=== PATIENT | female | born 1985 | race Caucasian/White ===

== ENCOUNTER → 2017-10-24 15:22 | Outpatient (CLI) | payer OTHER, SELFPAY | PROVIDERS: Visit Provider Otolaryngology | DX: J02.9 Acute pharyngitis, unspecified (principal) | CPT/HCPCS: 87070; 87077 ==

== ENCOUNTER → 2018-05-15 17:46 | Outpatient (CLI) | payer OTHER, SELFPAY ==
--- NOTE | 2018-05-15 17:50 | CT_ITS ---
STUDY: CT BRAIN WITHOUT CONTRAST REASON FOR EXAM: Female, 32 years old. Migraines. RADIATION DOSAGE (If Supplied By Facility): CTDIvol = ( 44.99 ) mGy, DLP = ( 779.24 ) mGycm TECHNIQUE: Transaxial CT imaging of the brain was performed without administration of intravenous contrast material. Individualized dose optimization techniques were used for this CT. COMPARISON: None. FINDINGS: Normal soft tissue structures. Normal calvarium. Normal size ventricles and extra-axial spaces for the patient's age. Normal white matter tracts of the cerebral hemispheres. Normal basal ganglia and thalami. Normal brainstem. Normal cerebellum. There is no intracranial hemorrhage. There are no findings of an acute ischemic infarction. Mucous inclusion cyst seen in the posterior left sphenoid sinus. Mild mucoperiosteal thickening in the mid to posterior left ethmoid sinus. CT/Brain/Head without Contrast IMPRESSION: 1. Normal unenhanced CT scan of the brain. 2. Mild chronic paranasal sinusitis, including mucous inclusion cyst in the posterior left sphenoid sinus. Electronically Signed: Thor Ford MD at 19:02 EST , Service support ,
== END ==
PROVIDERS: Family Provider Family Medicine; PCP Family Medicine; Referring Provider Nurse Practitioner Acute Care; Visit Provider Nurse Practitioner Acute Care
DX: R51 Headache (principal)
CPT/HCPCS: 70450

== ENCOUNTER → 2018-06-15 20:00 | Outpatient (CLI) | payer OTHER, SELFPAY | PROVIDERS: Family Provider Family Medicine; PCP Family Medicine; Visit Provider Nurse Practitioner Acute Care | DX: R06.83 Snoring (principal); R09.89 Other specified symptoms and signs involving the circulatory and respiratory systems | CPT/HCPCS: 95810 ==

== ENCOUNTER → 2018-07-03 15:59 | Outpatient (CLI) | payer OTHER, SELFPAY ==
[2018-07-03 18:12] LABS: Progesterone Level 0.57 ng/mL (See Comment)
== END ==
PROVIDERS: Visit Provider Obstetrics & Gynecology
DX: E28.8 Other ovarian dysfunction (principal)
CPT/HCPCS: 36415; 84144

== ENCOUNTER → 2018-07-26 10:06 | Outpatient (CLI) | payer OTHER, SELFPAY ==
[2018-07-26 12:45] LABS: Hematocrit 49.4 % (37-47); Hemoglobin 15.9 g/dl (12.0-15.0); Mean Corp Hgb Conc 32.2 g/gl (32-36); Mean Corpuscular Hgb 30.7 pg (27.0-32.0); Mean Corpuscular Volume 95.4 fL (81-99); Mean Platelet Vol. 11.5 fl (6.2-12.0); Platelet Count 263 K/mm3 (150-450); RBC Distribution Width SD 45.2 fl (35.1-43.9); Red Blood Count 5.18 M/mm3 (4.2-5.4); White Blood Count 13.7 K/mm3 (4.4-11.0)
[2018-07-26 12:46] LABS: Scan Indicated on CBC? Y/N NO
[2018-07-26 13:11] LABS: ALB/GLOB Ratio 0.9 RATIO (0.9-2.4); AST(SGOT) 14 U/L (15-37); Alanine Aminotransfer ALT/SGPT 33 U/L (13-56); Albumin, Serum 3.5 g/dL (3.2-5.0); Alkaline Phosphatase 84 U/L (45-117); Anion Gap 9 (5-15); BUN 15 mg/dL (7-18); BUN/Creat Ratio 26.2 RATIO (10-20); Calcium,Total 8.5 mg/dL (8.5-10.1); Chloride 107 mmol/L (98-107); Creatinine, Serum 0.57 mg/dL (0.55-1.02); EST Glomerular Filtration Rate 131 mL/min (>60); Est Glom Filt Rate - Afr Amer 158 mL/min (>60); Estradiol 31.8 pg/mL; Follicle Stimulating Hormone 5.6 mIU/mL; Globulin 3.7 g/dL (2.2-4.2); Glucose 95 mg/dL (74-106); Luteinizing Hormone 3.3 mIU/mL; Potassium 4.4 mmol/L (3.5-5.1); Prolactin 8.7 ng/mL; Protein, Total 7.2 g/dL (6.4-8.2); Sodium Level 141 mmol/L (136-145); T3 Total - Triiodothyronine 1.34 ng/mL (0.6-1.81); T4 Free Direct 0.91 ng/dL (0.76-1.46); Thyroid Stim Hormone (TSH) 1.17 uIU/mL (0.358-3.74); Vitamin D,25 Hydroxy 19.3 ng/mL (29.95-100.01)
[2018-07-27 04:08] LABS: DHEA Sulfate 259.9 ug/dL (84.8-378.0)
[2018-07-27 10:12] LABS: Sex Hormone-binding Globulin 38.2 nmol/L (24.6-122.0)
== END ==
PROVIDERS: Visit Provider Obstetrics & Gynecology
DX: N97.0 Female infertility associated with anovulation (principal); E28.8 Other ovarian dysfunction; N83.9 Noninflammatory disorder of ovary, fallopian tube and broad ligament, unspecified
CPT/HCPCS: 36415; 80053; 82306; 82627; 82670; 83001; 83002; 84146; 84270; 84403; 84439; 84443; 84480; 85027; 82626

== ENCOUNTER → 2018-08-14 08:04 | Outpatient (CLI) | payer OTHER, SELFPAY ==
[2018-08-14 08:55] LABS: Hematocrit 44.7 % (37-47); Hemoglobin 14.9 g/dl (12.0-15.0); Mean Corp Hgb Conc 33.3 g/gl (32-36); Mean Corpuscular Hgb 31.3 pg (27.0-32.0); Mean Corpuscular Volume 93.9 fL (81-99); Mean Platelet Vol. 11.5 fl (6.2-12.0); Platelet Count 208 K/mm3 (150-450); RBC Distribution Width CV 12.9 % (11.6-14.6); Red Blood Count 4.76 M/mm3 (4.2-5.4); White Blood Count 17.2 K/mm3 (4.4-11.0)
[2018-08-14 08:58] LABS: Glucose 75GTT - Fasting 103 mg/dL (70-99)
[2018-08-14 09:03] LABS: Scan Indicated on CBC? Y/N NO
[2018-08-14 09:12] LABS: Vitamin D,25 Hydroxy 17.5 ng/mL (29.95-100.01)
[2018-08-14 09:12] LABS: Insulin 75GTT - Fasting 30.1 mU/L (2.6-37.6)
[2018-08-14 09:14] LABS: ALB/GLOB Ratio 0.8 RATIO (0.9-2.4); AST(SGOT) 18 U/L (15-37); Alanine Aminotransfer ALT/SGPT 32 U/L (13-56); Albumin, Serum 3.1 g/dL (3.2-5.0); Alkaline Phosphatase 69 U/L (45-117); Anion Gap 8 (5-15); BUN 12 mg/dL (7-18); BUN/Creat Ratio 22.3 RATIO (10-20); Calcium,Total 8.4 mg/dL (8.5-10.1); Chloride 108 mmol/L (98-107); Creatinine, Serum 0.54 mg/dL (0.55-1.02); EST Glomerular Filtration Rate 141 mL/min (>60); Est Glom Filt Rate - Afr Amer 170 mL/min (>60); Estradiol 78.9 pg/mL; Follicle Stimulating Hormone 2.8 mIU/mL; Free T3 3.4 pg/mL (2.18-3.98); Globulin 3.9 g/dL (2.2-4.2); Glucose 94 mg/dL (74-106); Luteinizing Hormone 6.3 mIU/mL; Potassium 3.9 mmol/L (3.5-5.1); Prolactin 15.9 ng/mL; Sodium Level 140 mmol/L (136-145); T4 Free Direct 0.92 ng/dL (0.76-1.46); Thyroid Stim Hormone (TSH) 2.75 uIU/mL (0.358-3.74)
[2018-08-14 10:08] LABS: Glucose 75GTT - 30 minutes 135 mg/dL (100-160)
[2018-08-14 10:09] LABS: Glucose 75GTT - 60 minutes 170 mg/dL (100-160)
[2018-08-14 10:20] LABS: Insulin 75GTT - 60 min 120.5 mU/L (Not Estab)
[2018-08-14 10:20] LABS: Insulin 75GTT - 30 MIN 71.2 mU/L (Not Estab.)
[2018-08-14 10:47] LABS: Glucose 75GTT - 120 minutes 140 mg/dL (70-140)
[2018-08-14 10:56] LABS: Insulin 75GTT - 120 min 187.4 mU/L (Not Estab.)
== END ==
PROVIDERS: Family Provider Family Medicine; PCP Family Medicine; Referring Provider Obstetrics & Gynecology; Visit Provider Obstetrics & Gynecology
DX: N97.0 Female infertility associated with anovulation (principal); E28.8 Other ovarian dysfunction; N83.9 Noninflammatory disorder of ovary, fallopian tube and broad ligament, unspecified
CPT/HCPCS: 36415; 80053; 82306; 82627; 82670; 82951; 82952; 83001; 83002; 83525; 84146; 84270; 84403; 84439; 84443; 84481; 85027; 82626

== ENCOUNTER → 2018-09-15 13:19 | Outpatient (CLI) | payer OTHER, SELFPAY ==
[2018-09-15 15:57] LABS: Progesterone Level 10.44 ng/mL (See Comment)
== END ==
PROVIDERS: Visit Provider Obstetrics & Gynecology
DX: N97.0 Female infertility associated with anovulation (principal)
CPT/HCPCS: 36415; 84144

== ENCOUNTER → 2018-10-16 09:16 | Outpatient (CLI) | payer OTHER, SELFPAY ==
[2018-10-16 11:11] LABS: Progesterone Level 8.06 ng/mL (See Comment)
== END ==
PROVIDERS: Visit Provider Obstetrics & Gynecology
DX: N97.0 Female infertility associated with anovulation (principal)
CPT/HCPCS: 36415; 84144

== ENCOUNTER → 2018-12-12 | Outpatient (CLI) | payer OTHER, SELFPAY ==
[2018-12-12 14:24] LABS: Progesterone Level 14.24 ng/mL (See Comment)
== END | disposition home or self-care (01) ==
PROVIDERS: Visit Provider Obstetrics & Gynecology
DX: N97.0 Female infertility associated with anovulation (principal)
CPT/HCPCS: 36415; 84144

== ENCOUNTER → 2019-02-13 | Outpatient (CLI) | payer OTHER, SELFPAY ==
[2019-02-13 19:22] LABS: Chlamydia Trachomatis by PCR Negative (Negative); Neisserai gonorrhoeae by PCR Negative (Negative); Probe Check PASS; Sample Adequacy Control PASS; Specimen Processing Control PASS
== END | disposition home or self-care (01) ==
LOC: LABSPEC 15:16
PROVIDERS: Visit Provider Obstetrics & Gynecology
DX: Z34.81 Encounter for supervision of other normal pregnancy, first trimester (principal); Z11.3 Encounter for screening for infections with a predominantly sexual mode of transmission
CPT/HCPCS: 87491; 87591

== ENCOUNTER → 2019-03-13 14:07 | Outpatient (CLI) | payer OTHER, SELFPAY ==
[2019-03-13 17:38] LABS: Absolute Lymphocyte Count 3.57 X10^3/uL (0.83-4.51); Absolute Neutrophil Count 11.6 X10^3/uL (2.0-7.7); Basophil# 0.05 X10^3/uL; Basophil% 0.3 % (0-1); Eosinophils% 1.2 % (0-5); Hematocrit 43.7 % (37-47); Hemoglobin 14.7 g/dL (12.0-15.0); Lymphocyte # 3.57 X10^3/ul (4.0); Lymphocyte % 22.2 % (19-41); Mean Corp Hgb Conc 33.6 g/dL (32-36); Mean Corpuscular Hgb 31.1 pg (27.0-32.0); Mean Corpuscular Volume 92.4 fL (81-99); Mean Platelet Vol. 11.7 fl (6.2-12.0); Monocyte# 0.58 X10^3/uL; Monocyte% 3.6 % (0-10); NRBC Flagged by Analyzer 0 % (0-5); Neutrophil # 11.58 X10^3/uL (2.7-7.7); Platelet Count 201 K/mm3 (150-450); RBC Distribution Width CV 12.3 % (11.6-14.6); RBC Distribution Width SD 41.8 fl (35.1-43.9); Red Blood Count 4.73 M/mm3 (4.2-5.4); White Blood Count 16.1 K/mm3 (4.4-11.0)
[2019-03-13 17:41] LABS: Color, Urine Yellow (Yellow); Glucose, Dipstick Normal (Normal); Ketone-Dipstick 15 mg/dl (Negative); Leukocyte Esterase-Dipstick Negative /ul (Negative); Nitrite-Dipstick Negative (Negative); Occult Blood-Urine Negative /ul (Negative); Protein-Dipstick Negative (Negative); Specific Gravity, Urine 1.015 (1.002-1.030); Urine Bilirubin Dipstick Negative (Negative); Urine Clarity Clear (Clear); Urine Urobilinogen Normal (Normal); Urine pH 6.5 (5.0 - 8.0)
[2019-03-13 17:58] LABS: Glucose Challenge Gest 1H 50g 137 mg/dL (70-140); Thyroid Stim Hormone (TSH) 1.16 uIU/mL (0.358-3.74)
[2019-03-13 18:05] LABS: Amphetamine Urine VISTA NEGATIVE (<1000 ng/mL); Barbiturate Urine VISTA NEGATIVE (< 200 ng/mL); Benzodiazepine Urine VISTA NEGATIVE (< 200 ng/mL); Cocaine Urine VISTA NEGATIVE (< 300 ng/mL); Ecstacy Urine VISTA NEGATIVE (< 500 ng/mL); Methadone Urine VISTA NEGATIVE (< 300 ng/mL); PCP Urine VISTA NEGATIVE (< 25 ng/mL); THC Urine VISTA NEGATIVE (< 50 ng/mL); Vista UDS pH Range 6
[2019-03-13 19:11] LABS: COTININE Drug Screen Positive (<200 ng/mL)
[2019-03-14 10:36] LABS: HIV - WCH Non-Reactive (Nonreactive); Hepatitis B Surface Antigen Non-Reactive (Nonreactive); Hepatitis C Antibody Non-Reactive (Nonreactive); Rubella IgG > 500.0 IU/mL
[2019-03-16 02:39] LABS: Prenatal RPR NONREACTIVE (NONREACTIVE)
== END ==
LOC: LABSPEC 14:09 → WOBLAB 14:10
PROVIDERS: Visit Provider Obstetrics & Gynecology
DX: O99.211 Obesity complicating pregnancy, first trimester (principal); Z3A.00 Weeks of gestation of pregnancy not specified
CPT/HCPCS: 36415; 80307; 81002; 82306; 82950; 84443; 85025; 86703; 86762; 86803; 87340

== ENCOUNTER → 2019-04-06 15:01 | Outpatient (CLI) | payer OTHER, SELFPAY ==
[2019-04-06 16:06] LABS: Color, Urine Yellow (Yellow); Glucose, Dipstick Normal (Normal); Ketone-Dipstick Negative (Negative); Leukocyte Esterase-Dipstick Negative /ul (Negative); Nitrite-Dipstick Negative (Negative); Occult Blood-Urine 25 /ul (Negative); Protein-Dipstick Negative (Negative); Specific Gravity, Urine 1.015 (1.002-1.030); Urine Bilirubin Dipstick Negative (Negative); Urine Clarity Clear (Clear); Urine Urobilinogen Normal (Normal)
== END ==
PROVIDERS: Visit Provider Obstetrics & Gynecology
DX: O23.42 Unspecified infection of urinary tract in pregnancy, second trimester (principal); Z3A.00 Weeks of gestation of pregnancy not specified
CPT/HCPCS: 81002; 87086; 87088

== ENCOUNTER → 2019-07-05 09:41 | Outpatient (CLI) | payer OTHER, SELFPAY ==
[2019-07-05 10:58] LABS: Hematocrit 37.3 % (37-47); Hemoglobin 12.6 g/dL (12.0-15.0); Mean Corp Hgb Conc 33.8 g/dL (32-36); Mean Corpuscular Hgb 31.1 pg (27.0-32.0); Mean Corpuscular Volume 92.1 fL (81-99); Mean Platelet Vol. 11.5 fl (6.2-12.0); Platelet Count 212 K/mm3 (150-450); RBC Distribution Width CV 12.5 % (11.6-14.6); RBC Distribution Width SD 41.9 fl (35.1-43.9); Red Blood Count 4.05 M/mm3 (4.2-5.4); White Blood Count 17.3 K/mm3 (4.4-11.0)
[2019-07-05 11:23] LABS: Glucose Challenge Gest 1H 50g 176 mg/dL (70-140)
[2019-07-05 11:39] LABS: Vitamin D,25 Hydroxy 23.1 ng/mL (29.95-100.01)
== END ==
PROVIDERS: Visit Provider Obstetrics & Gynecology
DX: Z34.83 Encounter for supervision of other normal pregnancy, third trimester (principal)
CPT/HCPCS: 36415; 82306; 82950; 85027

== ENCOUNTER → 2019-07-09 06:43 | Outpatient (CLI) | payer OTHER, SELFPAY ==
[2019-07-09 08:24] LABS: Glucose GTT-Gestation. Fasting 94 mg/dL (<105)
[2019-07-09 08:25] LABS: Glucose GTT-Gestational 1 Hr 185 mg/dL (<190)
[2019-07-09 09:38] LABS: Glucose GTT-Gestational 2 Hr 173 mg/dL (<165)
[2019-07-09 10:32] LABS: Glucose GTT-Gestational 3 Hr 129 L (<145)
== END ==
PROVIDERS: Family Provider Family Medicine; PCP Family Medicine; Referring Provider Obstetrics & Gynecology; Visit Provider Obstetrics & Gynecology
DX: Z34.83 Encounter for supervision of other normal pregnancy, third trimester (principal)
CPT/HCPCS: 36415; 82951; 82952

== ENCOUNTER 2019-09-19 05:30 | Inpatient (IN) | payer OTHER, SELFPAY ==
[2019-09-19] VITALS (21 sets, daily range): BP systolic 106–148; BP diastolic 50–82; PULSE 64–94; RESP 16–18; TEMP 36.1–36.8; O2SAT 95–98; BMI 49.9
--- NOTE | 2019-09-19 | FALS_PTH ---
PATIENT: CHIOMA ALFONSO LOC: [facility] U#:[id number] AGE/SX: 34/F ROOM: WP005 RE09/19/[address]: Dr. Abby Mcdowell MD : 1985 BED: 1 DIS: 09/21/2019 SPEC #: [id number] RECD: 09/19/19 09:58 STATUS: DAX REQ #: [id number] STEPHANIE: 09/19/19 00:[address]: Abby Lind DEPT: SURGICAL PATHOLOGY RECD BY: Tiburcio Schumacher ENTERED: 09/19/19 09:58 SP TYPE: FALL TUBES OTHR DR: Dr. Robert Narayanan MD Tissues: Fallopian tube Procedures: Surgery Specimen Level II HEADER OPERATION: Tubal ligation PRE-OP DIAGNOSIS: Sterilization TISSUE SUBMITTED: Fallopian tubes MICROSCOPIC DIAGNOSIS Right and left fallopian tubes, bilateral salpingectomies: Two complete segments of fallopian tubes with no pathologic change. AM:mc 09/20/19 MICROSCOPIC DESCRIPTION Slides are reviewed. GROSS DESCRIPTION Received is one container labeled with the patient's name and designated bilateral fallopian tubes. The specimen consists of two fallopian. The right fallopian tube measures 2 cm in length and 0.5 cm in diameter. The left fallopian tube measures 5.5 cm in length and 0.6 cm in diameter. Both fallopian tubes have normal fimbriated ends. No mass lesions are identified. Plant Specialist sections are submitted in two cassettes as follows: 1 - right fallopian tube, 2 - left fallopian tube. / AM:mc 09/19/19 TC:4 CPT: 36354 x2
[2019-09-19] MEDS: Lactated Ringers 1,000 ML 999 ML IV (05:55)
[2019-09-19 06:19] LABS: Absolute Lymphocyte Count 3.13 X10^3/uL (0.83-4.51); Absolute Neutrophil Count 12.6 X10^3/uL (2.0-7.7); Basophil# 0.04 X10^3/uL; Basophil% 0.2 % (0-1); Eosinophil# 0.26 X10^3/uL; Eosinophils% 1.5 % (0-5); Hematocrit 39.3 % (37-47); Hemoglobin 13.2 g/dL (12.0-15.0); Lymphocyte # 3.13 X10^3/ul (4.0); Lymphocyte % 18.4 % (19-41); Mean Corp Hgb Conc 33.6 g/dL (32-36); Mean Corpuscular Hgb 30.8 pg (27.0-32.0); Mean Corpuscular Volume 91.8 fL (81-99); Mean Platelet Vol. 11.3 fl (6.2-12.0); Monocyte# 0.76 X10^3/uL; Monocyte% 4.5 % (0-10); NRBC Flagged by Analyzer 0 % (0-5); Neutrophil # 12.64 X10^3/uL (2.7-7.7); Neutrophil % 74.5 % (47-70); Platelet Count 235 K/mm3 (150-450); RBC Distribution Width CV 12.8 % (11.6-14.6); RBC Distribution Width SD 41.8 fl (35.1-43.9); Red Blood Count 4.28 M/mm3 (4.2-5.4)
[2019-09-19] MEDS: Lactated Ringers 1,000 ML 150 ML IV (07:00)
[2019-09-19] MEDS: Sodium Citrate/Citric Acid 30 ML UDC PO (07:09)
[2019-09-19] MEDS: Cefazolin 2 GM in 0.9% Normal Saline 100 ML IV (07:21)
--- NOTE | 2019-09-19 07:40 | PCM.HP.OB ---
- Problem List (1) 39 weeks gestation of Status: Acute History Date of Admission: 09/19/19 Final DINORAH: 09/26/19 Final DINORAH Source: US <20 weeks Gestational age: 39 Weeks and 0 Days History of this : This is a 34 year-old, G [1], P [], at 39 weeks gestational age presents for scheduled repeat section. Medical History: Medical History (Last Updated 09/19/19 @ 07:[address] Abby Weeks MD) Anxiety and depression F41.9, F32.9 Paroxysmal atrial fibrillation I48.0 Sleep apnea G47.30 Surgical History: Surgical History (Last Updated 09/19/19 @ 07:[address] Abby Weeks MD) Previous section Z98.891 Allergies No Known Allergies Allergy (Verified 09/12/19 08:59) Home Medications: Home Medications Aspirin [Aspirin, Baby] 81 mg PO DAILY@0800 09/12/19 Cholecalciferol (Vitamin D3) [Vitamin D3] 5,000 unit PO DAILY 09/12/19 Vits [Prenatabs FA] 1 tab PO DAILY 09/12/19 Acetaminophen [Tylenol] 1,000 mg PO Q8H PRN tab 09/21/19 Ibuprofen [Motrin] 600 mg PO Q6H PRN PRN tab 09/21/19 Vits [Prenatabs FA ] 1 tab PO DAILY@1200 tab 09/21/19 Smoking Status: Current every day smoker Alcohol: None Number of Fetus(es): 1 NST - FHR Rate Baby A Baseline: 140 History Past Pregnancies: Past Pregnancies Delivery Date Name GA/ Weeks Outcome Route Wt Infant Sex Labor Length Anesthesia Delivery Location Provider FOB 12/2014 [facility] 37 Failed induction C/S 6lb9oz F Epidural, Spinal TRAMAINE Hernadez Labs: Mom's Problem List Problem Status Onset Code 39 weeks gestation of Acute Z3A.39 Mom's Labs & Results 09/19/19 09/19/19 05:55 06:35 WBC 17.0 H RBC 4.28 Hgb 13.2 Hct 39.3 MCV 91.8 MCH 30.8 MCHC 33.6 RDW Std Deviation 41.8 RDW Coeff of Jose 12.8 Plt Count 235 MPV 11.3 Immature Gran % (Auto) 0.900 Neut % (Auto) 74.5 H Lymph % (Auto) 18.4 L [place] % (Auto) 4.5 Eos % (Auto) 1.5 Baso % (Auto) 0.2 Absolute Neuts (auto) 12.6 H Absolute Lymphs (auto) 3.13 Nucleated RBC % 0 Blood Type Pending Antibody Screen Pending Course Did the patient receive Yes care? Labs Blood Type: B RH: POSITIVE RPR/VDRL/Syphilis Nonreactive Rubella status Immune HbSAg Negative Date Done: 09/19/19 Chlamydia Negative Gonorrhea Negative HIV/AIDS Non-Reactive Group B Strep: Not Done Current Obstetrical History Gestational Diabetes No Incompetent Cervix No Infertility Yes IUGR No Macrosomia No Hypertension/Pre-eclampsia No Placenta Previa/Abruption No PTL/PROM No Uterine anomaly No Oligohydramnios No Polyhydramnios No Multiple gestation No Past Medical History Asthma No Diabetes No Hypertension No Heart disease No Mitral valve prolapse No Neurologic/Seizure disorder/ Yes: migraines Migraines Kidney disease No Liver disease No Varicosities No Clotting disorders/Hx of DVT No Thyroid Dysfunction No Other medical diseases No Psychiatric disorders Yes: anxiety/depression Major trauma No Abnormal PAP smear No Sleep apnea Yes: 2019, CPAP machines Mammogram in the last 2 years No Medications Taken During Dose/Freq.: [baby aspirin] 81mg Dose/Freq.: [vitamin D] 5000units Dose/Freq.: [] 2 gummies/day Last Date/Time of Medication 09/18/19 @ 1000 Taken: [baby aspirin] Last Date/Time of Medication 09/18/19 @ 1000 Taken: [vitamin D] Last Date/Time of Medication 09/18/19 @ 1000 Taken: [] Reason for taking medication [ pre-eclampsia during previous baby aspirin] Reason for taking medication [ vitamin D deficiency vitamin D] Reason for taking medication [ standard ] Social History Marital Status: Alleged father Satya Hx Smoking Yes Smoking Status Current every day smoker Expected Infant Delivery Method: Scheduled Section Physical Exam Vitals: Vital Signs Temp Pulse BP Pulse Ox 97.5 F L 94 124/74 H 98 09/19/19 06:50 09/19/19 06:50 09/19/19 06:50 09/19/19 06:50 General: Alert, Oriented x3, Cooperative, No apparent distress HEENT: Atraumatic, Normocephalic Cardiovascular: Regular rate, Regular Rhythm, Normal S1, Normal S2 Lungs: Clear to auscultation, Normal air movement Abdomen: Soft, Non Tender, Non-Distended Neurological: Neuro grossly intact MOLD CAR PUSHER: Normal external genitalia Estimated gestational size: Appropriate for gestational size Assessment/Plan All Active Problems (Last Updated 09/19/19 @ 07:[address] Abby Weeks MD) New onset atrial fibrillation (Acute) 39 weeks gestation of (Acute) This is a 34 year-old, G 1[], P [], at 39 weeks gestational age -Proceed with section as planned -BTL planned
--- NOTE | 2019-09-19 09:05 | PCM.OPRPT ---
Problem List (1) 39 weeks gestation of Status: Acute Delivery Classification: Scheduled Final DINORAH: 09/26/19 Gestational age: 40 Weeks and 3 Days multimedia programmer: Kristen Pierre Type of Anesthesia:: Spinal Date of Procedure: 09/19/19 Pre-Operative Diagnosis: 39wga, prior section, sterilization request Post-Operative Diagnosis: 39wga, prior section, sterilization request Indications: 34-year-old 2 para 1-0-0-1 presents for scheduled repeat section. Procedural risks, benefits, indications and alternatives were reviewed and consent signed. Patient desired to proceed. Indications for : Repeat Elective , Desires elective sterilization Description of Procedure: 1. repeat low transverse section 2. Right bilateral partial salpingectomy 3. lysis of adhesions 4. Left distal salpingectomy The patient was taken to the operating room and spinal analgesia was administered. She is placed in a dorsal supine position with left lateral tilt. The perineum and abdomen were prepped and draped in sterile fashion. And the spinal was found to be adequate. A Pfannenstiel incision was made using a scalpel and brought down to incise the subcutaneous tissue and rectus fascia at the midline. Subcutaneous tissue was bluntly dissected off the fascia laterally. The fascial incision was dissected laterally and cephalad using curved Delgado scissors. The superior leaflet of the rectus fascia was grasped using Alberto clamps and bluntly dissected and sharply dissected from the underlying rectus muscle. In a similar fashion the inferior rectus fascia was dissected from the underlying muscle. The rectus muscles were bluntly at the midline. The peritoneum was identified and entered [sharply]. The bladder blade was placed into the abdomen and the vesicouterine peritoneal fold identified. The fold was incised and a bladder flap created. Bladder blade was then repositioned to the abdomen. A low transverse hysterotomy was made using the [Metzenbaum scissors] to level of the membranes. The hysterotomy was extended bluntly cephalad and caudad. The membranes were then ruptured revealing clear fluid. The head was elevated and brought to the level of the hysterotomy and the infant delivered revealing vigorous [female] infant. The cord was doubly clamped and cut after 60 seconds. The was passed to awaiting [nursery personnel]. The placenta was [expressed] from the uterus and appeared intact on inspection. The uterus was exteriorized and cleared of debris. The hysterotomy was then repaired using 0 Vicryl running lock suture. A second imbricating layer was also placed for additional hemostasis. The right tube was isolated and the ampullary mesosalpinx opened. Ampullary tubal segment was suture ligated proximally and distally with 0 plaingut. A 2cm intervening segment was excised with good hemostasis. The left distal tube was adhered to the infundibulopelvic ligament with some blunting of fimbria with adhesion presenting risk for bowel obstruction, thus the distal adhesion was Jacklyn clamped, cut and suture ligated with 0 Vicryl. The distal tube and mesosalpinx extending from the ampullary portion to the fimbria was Jacklyn clamped and excised. The pedicle was suture ligated with 0 - plaingut with excellent hemostasis. The posterior culdesac was cleared of debris. The uterus and adnexae were returned to the abdomen. The bladder blade was removed. The anterior cul-de-sac was cleared of debris. The peritoneum and rectus muscles were reapproximated using 2-0 Vicryl running suture. The rectus fascia was closed using 0 Vicryl running suture. The subcutaneous tissue was sponge irrigated and small capillary bleeding controlled using the Bovie device. The subcutaneous tissue was reapproximated using 2-0 Vicryl. The skin was closed using 4-0 Monocryl subcuticularly. This was followed by Cavilon and a Mepilex occlusive dressing was placed over the incision. The fundus was firm. The patient was then transferred to the recovery room without complication. Sponge, instrument, and needle counts were correct ?2. Amniotic Membrane Rupture Type: Artificial Amniotic Fluid Description: Clear Placenta Disposition: [facility] Drain: Rajan to straight drain Fluids Replaced: 1000 ml Cord Entanglement: Around neck x 1, loose Nuchal Cord Compression: Without compression Cord Vessel Description: 3 Vessels Esitmated Blood Loss (ml): 650 ml Infant Gender: Female (1 minute): 9 (5 minute): 9 Delayed cord clamping: Yes Antibiotic Given: Ancef 3 grams IV x1 Pt instructed on risks of surgery: Bleeding, Anesthesia Risks, Infection, Need for Future C-Sections, Failure Rate of 1 to 2%, Injury to surrounding structure(s) including bowel and bladder, Availability of other non-permanent control options Complications: None - Admit VTE Documentation VTE Present on Admission: No VTE Mechan Device Prophylaxis: SCD's VTE Pharm Prophylaxis ordered?: No
--- NOTE | 2019-09-19 09:15 | EKGRS_ITS ---
Test Reason : HEART BLOCK Blood Pressure : / mmHG Vent. Rate : 058 BPM Atrial Rate : 058 BPM P-R Int : 180 ms QRS Dur : 082 ms QT Int : 406 ms P-R-T Axes : 016 049 033 degrees QTc Int : 398 ms Sinus bradycardia with sinus arrhythmia Otherwise normal ECG When compared with ECG of 15-JAN-2015 20:22, Sinus rhythm has replaced Atrial fibrillation QT has shortened Confirmed by GALE WINTERS ([id number]), industrial editor CELESTE SHAH ([id number]) on 09/20/2019 8:03:30 AM Referred By: Abby Weeks Confirmed By:GALE WINTERS
[2019-09-19] MEDS: Oxytocin 30 units/NS 500 ml 30 UNITS/500 ML IV.SOLN 167 UNITS IV (09:20)
[2019-09-19 09:31] LABS: Pathology Specimen OB SEE PATHOLOGY REPORT
[2019-09-19] MEDS: Lactated Ringers 1,000 ML 100 ML IV (12:30)
[2019-09-19] MEDS: Ketorolac 30 MG/ML Syringe IV ×2 (15:21→21:25)
[2019-09-19] MEDS: Acetaminophen 500 MG Tablet 1000 MG PO (19:46)
[2019-09-19] MEDS: Enoxaparin 40 MG/0.4 ML Syringe SC (19:46)
[2019-09-19] MEDS: 0.9% Saline Lock 10 ML Syringe IV (21:25)
[2019-09-20] VITALS (9 sets, daily range): BP systolic 114–152; BP diastolic 58–86; PULSE 82–96; RESP 16; TEMP 36.4–36.8; O2SAT 97–99
[2019-09-20] MEDS: 0.9% Saline Lock 10 ML Syringe IV ×3 (02:34→15:33)
[2019-09-20] MEDS: Ketorolac 30 MG/ML Syringe IV ×4 (02:34→21:21)
[2019-09-20 05:27] LABS: Hematocrit 34.7 % (37-47); Hemoglobin 11.8 g/dL (12.0-15.0); Mean Corpuscular Hgb 31.9 pg (27.0-32.0); Mean Corpuscular Volume 93.8 fL (81-99); Platelet Count 193 K/mm3 (150-450); RBC Distribution Width SD 43.8 fl (35.1-43.9); White Blood Count 14.7 K/mm3 (4.4-11.0)
--- NOTE | 2019-09-20 08:41 | PCM.PN.OB ---
Patient Problems: Active and Suspected Problems (Last Updated 09/19/19 @ 07:[address] Abby Weeks MD) 39 weeks gestation of (Acute) Subjective: Feeling okay. A lot of cramping and incisional pain 4/10. Complains of a headache, not relieved with Tylenol. Feels hydrated, but got very little sleep so thinks this is the cause. daughter, but having complications and working with with nipple shield, hand expressing, and supplementing with formula. Concerned about post-op EKG. Denies heavy lochia. Objective: VSS. Dressing CDI. Fundus u/1, firm, midline. EKG showed sinus arrythmia, no block. - Physical Exam Vitals/I&O's: Vital Signs Temp Pulse Resp BP Pulse Ox 97.5 F L 96 16 125/58 H 98 09/20/19 03:58 09/20/19 05:58 09/20/19 05:58 09/20/19 03:58 09/20/19 05:58 Oxygen Delivery Method Room Air Weight: 144.696 kg Body Mass Index (BMI) 49.9 Intake and Output for Last 24 Hours 09/18/19 09/19/19 09/20/19 23:59 23:59 23:59 Intake Total 6317.33 / 6317.33 Output Total 1300 / 1300 900 / 900 Balance 5017.33 / 5017.33 -900 / -900 General: Alert, Oriented x3, Cooperative HEENT: Atraumatic, PERRLA, EOMI, Normocephalic Neck: Supple, No JVD, Negative Carotid Bruits Lungs: Clear to auscultation, Normal air movement Cardiovascular: Regular rate, No murmurs Abdomen: Bowel Sounds Present, Soft, Non Tender, Passing Flatus Extremities: No edema, Capillary Refill Less than 3 Seconds Skin: No rashes, No breakdown, Incision - dressing CDI Musculoskeletal: No Tenderness to Palpation of Joints or Extremities Neurological: Cranial nerves II-XII grossly intact Psych/Mental Status: Normal Affect, Appropriate Laboratory Results 09/19/19 06:35: Blood Type B POSITIVE, Antibody Screen NEGATIVE 09/20/19 05:18: WBC 14.7 H, RBC 3.70 L, Hgb 11.8 L, Hct 34.7 L, MCV 93.8, MCH 31.9, MCHC 34.0, RDW Std Deviation 43.8, RDW Coeff of Jose 13.0, Plt Count 193, MPV 11.0 Current Medications Acetaminophen (Tylenol) 1,000 mg PO Q8H PRN PRN Reason: Pain Score 1-3/10 Last Admin: 09/19/19 19:46 Dose: 1,000 mg Documented by: Acetaminophen/Butalbital/Caffeine (Fioricet) 2 tablet PO Q4H PRN PRN PRN Reason: HEADACHE Bisacodyl (Dulcolax) 10 mg RECTAL UD PRN PRN Reason: If no BM Diphenhydramine HCl (Benadryl) 25 mg PO Q6H PRN PRN PRN Reason: ITCHING Stop: 09/20/19 09:32 Enoxaparin Sodium (Lovenox) 40 mg SC DAILY [facility] Last Admin: 09/19/19 19:46 Dose: 40 mg Documented by: Hydrocortisone (Hytone) 1 applic TOPICAL TID PRN PRN; Protocol PRN Reason: Discomfort Naloxone HCl 4 mg/ Dextrose 504 mls @ 0 mls/hr IV .Q0M PRN; Protocol PRN Reason: Respiratory depression Ibuprofen (Motrin) 600 mg PO Q6H PRN PRN PRN Reason: Pain Score 1-3/10 Ketorolac Tromethamine (Toradol (Bkc)) 30 mg IV Q6H [facility] Stop: 09/21/19 09:01 Last Admin: 09/20/19 02:34 Dose: 30 mg Documented by: Methylergonovine Maleate (Methergine) 0.2 mg IM X1 PRN PRN Reason: Uterine Atony Nalbuphine HCl (Nubain) 5 mg IV Q3H PRN PRN PRN Reason: ITCHING Stop: 09/20/19 09:32 Naloxone HCl (Narcan) 0.02 mg IV Q1M PRN PRN Reason: RR <10 and pt unresponsive Ondansetron HCl (Zofran) 4 mg IV Q4H PRN PRN PRN Reason: Nausea Oxycodone HCl (Oxyir) 5 - 10 mg PO Q4H PRN PRN PRN Reason: Pain Score 4-10/10 Multivit/Folic Acid/Iron (Prenatabs Fa) 1 tablet PO DAILY@1200 MURIEL Prochlorperazine Edisylate (Compazine Iv) 10 mg IV Q6H PRN PRN PRN Reason: NAUSEA Senna/Docusate Sodium (Senokot-S, Vonda-Colace) 0 tablet PO DAILY PRN PRN Reason: Constipation Simethicone (Mylicon) 80 mg PO PCHS PRN PRN Reason: Indigestion/stomach pain Sodium Chloride () 5 - 15 ml IV UD PRN PRN Reason: SALINE FLUSH Last Admin: 09/20/19 02:34 Dose: 10 ml Documented by: Medical Necessity - Tobacco Use Smoking Status: Current every day smoker Tobacco Use: Non-smoker Assessment/Plan All Active Problems (Last Updated 09/19/19 @ 07:[address] Abby Weeks MD) New onset atrial fibrillation (Acute) 39 weeks gestation of (Acute) A/P: POD #1 Repeat Incisional pain controlled with IV Toradol, will switch to oral medication today Headache, Fioricet ordered Encouraged to increase oral fluids and to rest Continue PP course Possibly wants to discharge tomorrow
[2019-09-20] MEDS: Acetaminophen/Butalbital/Caffe 1 Tablet 2 TABLET PO ×2 (10:11→21:22)
[2019-09-20] MEDS: Enoxaparin 40 MG/0.4 ML Syringe SC (10:11)
[2019-09-20] MEDS: Prenatal Vits Tablet 1 TABLET PO (14:05)
[2019-09-21 02:00] VITALS: BP 148/69; PULSE 100; RESP 16; TEMP 36.7
[2019-09-21] MEDS: 0.9% Saline Lock 10 ML Syringe IV ×2 (02:57→09:09)
[2019-09-21] MEDS: Ketorolac 30 MG/ML Syringe IV ×2 (02:57→09:00)
[2019-09-21 08:00] VITALS: BP 156/85; PULSE 77; RESP 20; TEMP 36.2
--- NOTE | 2019-09-21 08:59 | DCINST_ITS ---
Discharge Diet: No Restrictions Discharge Activity: May Not Drive - for 2 weeks or while taking narcotic pain meds., May Shower, May Take a Tub Bath - in 7 days. May resume sexual activity in: 4-6 weeks Lifting Restrictions: 20 pounds Additional Activity Instructions:: Nothing in the vagina for 4-6 weeks. You may return to work/school in 6 weeks. Call your doctor if your incision/area has: Continuous Slow Oozing, Sudden Increased Bleeding, Increased Pain/ Swelling, Increased Redness, Foul Smelling Discharge Call your doctor if you observe: Fever of 101 or Higher Suture Line Care: Avoid Pulling/Pushing, Avoid Pinching/Bending Remove Dressing in (days):: 5 Cleanse incision/area with: Soap & Water - after bandage removal, okay to get wet prior Additional Instructions: If you experience any of the following, contact your healthcare provider. * Bleeding that soaks a pad every hour for 2 hours * Fever 100.4 or higher * Unrelieved incision or abdominal pain * Swelling, redness, discharge or bleeding from your incision or episiotomy site * Your incision begins to separate * Problems urinating (including inability to urinate or burning while urinating). * Visual changes * Severe headache * Flu-like symptoms * Pain or redness in one of both of your breasts * Pain, warmth, tenderness or swelling in your legs, especially the calf area * Frequent nausea and vomiting * Symptoms of depression or anxiety If you experience any of the following, call 911 or go to the nearest Emergency Room. * Chest pain * Problems breathing * Seizure activity * Partial or complete paralysis of a body part, slurred speech, weakness or drooping of the face, or a sudden inability to walk or hold your balance * Allergies/Adverse Reactions: Allergies No Known Allergies Allergy (Verified 09/12/19 08:59) Medications to take at Discharge Aspirin [Aspirin, Baby] 81 mg PO DAILY@0800 09/12/19 Cholecalciferol (Vitamin D3) [Vitamin D3] 5,000 unit PO DAILY 09/12/19 Vits [Prenatabs FA] 1 tab PO DAILY 09/12/19 Acetaminophen [Tylenol] 1,000 mg PO Q8H PRN tablet 09/21/19 Acetaminophen/Butalbital/Caffe [Fioricet] 2 tab PO Q4H PRN PRN 3 Days #20 tab 09/21/19 Ibuprofen [Motrin] 600 mg PO Q6H PRN PRN tablet 09/21/19 Oxycodone [Oxyir] 5 - 10 mg PO Q4H PRN PRN 3 Days #10 tablet 09/21/19 Vits [Prenatabs FA ] 1 tablet PO DAILY@1200 tablet 09/21/19 The following prescriptions were given: Acetaminophen/Butalbital/Caffe [Fioricet] 2 tab PO Q4H PRN PRN 3 Days #20 tab PRN Reason: Headache Prescription Printed Oxycodone [Oxyir] 5 - 10 mg PO Q4H PRN PRN 3 Days #10 tablet PRN Reason: Pain Score 4-10/10 Transmission Status: Sent to [facility]/pharmacy #[id number] Follow-Up: Call to make an appointment with your doctor for an incision check in 1-2 weeks. You will also need a 6 week post- follow up appointment. Test results from this visit will be discussed in further detail at your follow- up appointment, if applicable. Please Follow Up With: Abby Weeks MD Primary Care Physician: Robert Narayanan MD [Primary Care Provider] -
[2019-09-21] MEDS: Enoxaparin 40 MG/0.4 ML Syringe SC (09:07)
[2019-09-21] MEDS: Prenatal Vits Tablet 1 TABLET PO (09:10)
[2019-09-21] MEDS: Senna/Docusate Sodium 1 Tablet PO (09:10)
--- NOTE | 2019-09-21 13:07 | PN.OBGYN_ITS ---
Patient Problems: Active and Suspected Problems (Last Updated 09/19/19 @ 07:[address] Abby Weeks MD) 39 weeks gestation of (Acute) Subjective: Feeling better today. Fioricet helped headache a lot. Cramping with . Denies heavy bleeding. Wants to discharge home today. Objective: VSS. At times, mildly elevated Bps with systolic 140s. States she feels well and each time it is elevated she's up and around. Denies headache, blurred vision or RUQ pain. Fundus firm, midline, u/2. Lochia rubra scant. CDI dressing. - Physical Exam Vitals/I&O's: Vital Signs Temp Pulse Resp BP Pulse Ox 97.1 F L 77 20 H 156/85 H 98 09/21/19 08:00 09/21/19 08:00 09/21/19 08:00 09/21/19 08:00 09/20/19 09:06 Oxygen Delivery Method Room Air Weight: 144.696 kg Body Mass Index (BMI) 49.9 Intake and Output for Last 24 Hours 09/19/19 09/20/19 09/21/19 23:59 23:59 23:59 Intake Total 6317.33 / 6317.33 Output Total 1300 / 1300 900 / 900 Balance 5017.33 / 5017.33 -900 / -900 General: Alert, Oriented x3, Cooperative HEENT: Atraumatic, PERRLA, EOMI, Normocephalic Neck: Supple, No JVD, Negative Carotid Bruits Lungs: Clear to auscultation, Normal air movement Cardiovascular: Regular rate, No murmurs Abdomen: Bowel Sounds Present, Soft, Non Tender Extremities: No edema, Capillary Refill Less than 3 Seconds Skin: No rashes, No breakdown, Incision - CDI Musculoskeletal: No Tenderness to Palpation of Joints or Extremities Neurological: Cranial nerves II-XII grossly intact Psych/Mental Status: Normal Affect, Appropriate Current Medications Acetaminophen (Tylenol) 1,000 mg PO Q8H PRN PRN Reason: Pain Score 1-3/10 Last Admin: 09/19/19 19:46 Dose: 1,000 mg Documented by: Acetaminophen/Butalbital/Caffeine (Fioricet) 2 tablet PO Q4H PRN PRN PRN Reason: HEADACHE Last Admin: 09/20/19 21:22 Dose: 2 tablet Documented by: Bisacodyl (Dulcolax) 10 mg RECTAL UD PRN PRN Reason: If no BM Enoxaparin Sodium (Lovenox) 40 mg SC DAILY [facility] Last Admin: 09/21/19 09:07 Dose: 40 mg Documented by: Hydrocortisone (Hytone) 1 applic TOPICAL TID PRN PRN; Protocol PRN Reason: Discomfort Naloxone HCl 4 mg/ Dextrose 504 mls @ 0 mls/hr IV .Q0M PRN; Protocol PRN Reason: Respiratory depression Ibuprofen (Motrin) 600 mg PO Q6H PRN PRN PRN Reason: Pain Score 1-3/10 Methylergonovine Maleate (Methergine) 0.2 mg IM X1 PRN PRN Reason: Uterine Atony Naloxone HCl (Narcan) 0.02 mg IV Q1M PRN PRN Reason: RR <10 and pt unresponsive Ondansetron HCl (Zofran) 4 mg IV Q4H PRN PRN PRN Reason: Nausea Oxycodone HCl (Oxyir) 5 - 10 mg PO Q4H PRN PRN PRN Reason: Pain Score 4-10/10 Multivit/Folic Acid/Iron (Prenatabs Fa) 1 tablet PO DAILY@1200 M[facility]EL Last Admin: 09/21/19 09:10 Dose: 1 tablet Documented by: Prochlorperazine Edisylate (Compazine Iv) 10 mg IV Q6H PRN PRN PRN Reason: NAUSEA Senna/Docusate Sodium (Senokot-S, Vonda-Colace) 0 tablet PO DAILY PRN PRN Reason: Constipation Last Admin: 09/21/19 09:10 Dose: 2 tablet Documented by: Simethicone (Mylicon) 80 mg PO PCHS PRN PRN Reason: Indigestion/stomach pain Sodium Chloride () 5 - 15 ml IV UD PRN PRN Reason: SALINE FLUSH Last Admin: 09/21/19 09:09 Dose: 10 ml Documented by: Medical Necessity - Tobacco Use Smoking Status: Current every day smoker Tobacco Use: Non-smoker Assessment/Plan All Active Problems (Last Updated 09/19/19 @ 07:[address] Abby Weeks MD) New onset atrial fibrillation (Acute) 39 weeks gestation of (Acute) A/P: POD #2 One dose left of IV Toradol with pain well controlled Will discharge with Rx for Oxycodone for 3 days as well as Fioricet To check BP daily and educated on pre-e s/s To remove dressing at home in 5 days Has video call with Dr. Weeks scheduled in 2 weeks To discharge today per wishes
--- NOTE | 2019-09-29 08:37 | PCM.DC.SUM ---
Discharge Date and Diagnosis Date of Admission: 09/19/19 Date of Discharge: 09/21/19 - Secondary Discharge Diagnosis Chronic Problems (Last Updated 09/19/19 @ 07:[address] Abby Weeks MD) Depression (Chronic) Hospital Course and Treatment Operations: - - Low transverse section Summary of Care Provided: The patient is a 34 year old F 2 para 1 admitted at 39 weeks gestation for scheduled repeat section. She underwent an uncomplicated section and was discharged to home on post-operative day #2. - Physical Exam Vitals/I&O's: Vital Signs Temp Pulse Resp BP Pulse Ox 97.1 F L 77 20 H 156/85 H 98 09/21/19 08:00 09/21/19 08:00 09/21/19 08:00 09/21/19 08:00 09/20/19 09:06 Oxygen Delivery Method Room Air Weight: 144.696 kg Body Mass Index (BMI) 49.9 Discharge Diet: No Restrictions Discharge Activity: May Not Drive - for 2 weeks or while taking narcotic pain meds., May Shower, May Take a Tub Bath - in 7 days. May resume sexual activity in: 4-6 weeks Additional Activity Instructions:: Nothing in the vagina for 4-6 weeks. You may return to work/school in 6 weeks. Call your doctor if your incision/area has: Continuous Slow Oozing, Sudden Increased Bleeding, Increased Pain/ Swelling, Increased Redness, Foul Smelling Discharge Call your doctor if you observe: Fever of 101 or Higher Suture Line Care: Avoid Pulling/Pushing, Avoid Pinching/Bending Remove Dressing in (days):: 5 Cleanse incision/area with: Soap & Water - after bandage removal, okay to get wet prior Home Medications: Medications to take at Discharge Aspirin [Aspirin, Baby] 81 mg PO DAILY@0800 09/12/19 Cholecalciferol (Vitamin D3) [Vitamin D3] 5,000 unit PO DAILY 09/12/19 Vits [Prenatabs FA] 1 tab PO DAILY 09/12/19 Acetaminophen [Tylenol] 1,000 mg PO Q8H PRN tab 09/21/19 Ibuprofen [Motrin] 600 mg PO Q6H PRN PRN tab 09/21/19 Vits [Prenatabs FA ] 1 tab PO DAILY@1200 tab 09/21/19 Primary Care Physician: Robert Narayanan MD [Primary Care Provider] - Please Follow Up With: Abby Weeks MD Medical Necessity - Tobacco Use Smoking Status: Current every day smoker Tobacco Use: Non-smoker Meaningful Use Info Meaningful Use Diagnoses (Choose all that apply): None applicable
== END 2019-09-21 12:20 | disposition home or self-care (01) | DRG 783 ==
PROVIDERS: Admitting Provider Obstetrics & Gynecology; PCP Family Medicine; Referring Provider Obstetrics & Gynecology; Visit Provider Obstetrics & Gynecology
PROC: 10D00Z1 Extraction of Products of Conception, Low, Open Approach (ICD-10-PCS; CPT 59514; principal; 2019-09-19 07:15)
DX: O34.211 Maternal care for low transverse scar from previous cesarean delivery (principal); O99.42 Diseases of the circulatory system complicating childbirth; I48.0 Paroxysmal atrial fibrillation; Z30.2 Encounter for sterilization; O69.81X0 Labor and delivery complicated by cord around neck, without compression, not applicable or unspecified; O99.334 Smoking (tobacco) complicating childbirth; F17.200 Nicotine dependence, unspecified, uncomplicated; G47.30 Sleep apnea, unspecified; O99.344 Other mental disorders complicating childbirth; F32.9 Major depressive disorder, single episode, unspecified; Z3A.39 39 weeks gestation of pregnancy; F41.9 Anxiety disorder, unspecified; Z79.82 Long term (current) use of aspirin; Z79.899 Other long term (current) drug therapy; Z37.0 Single live birth
CPT/HCPCS: 85025; 85027; 86850; 86900; 86901; 88302; 93005; 99218; J7120; A4216; G0378; J2405

== ENCOUNTER → 2019-11-02 | Outpatient (CLI) | payer OTHER, SELFPAY ==
[2019-09-19 06:21] VITALS: BMI 49.9
[2019-11-07 15:57] LABS: HPV APTIMA, High Risk Negative (Negative)
== END | disposition home or self-care (01) ==
PROVIDERS: Referring Provider Obstetrics & Gynecology; Visit Provider Obstetrics & Gynecology
DX: Z12.4 Encounter for screening for malignant neoplasm of cervix (principal)
CPT/HCPCS: 87624; 88175; G0145

== ENCOUNTER → 2020-11-10 11:04 | Outpatient (CLI) | payer OTHER, SELFPAY ==
[2020-09-22 09:17] VITALS: BMI 53.5
[2020-11-10 11:21] LABS: Hematocrit 48.7 % (37-47); Hemoglobin 15.8 g/dL (12.0-15.0); Mean Corp Hgb Conc 32.4 g/dL (32-36); Mean Corpuscular Hgb 31.3 pg (27.0-32.0); Mean Corpuscular Volume 96.4 fL (81-99); Mean Platelet Vol. 11.4 fl (6.2-12.0); Platelet Count 233 K/mm3 (150-450); RBC Distribution Width CV 13.2 % (11.6-14.6); RBC Distribution Width SD 46.3 fl (35.1-43.9); Red Blood Count 5.05 M/mm3 (4.2-5.4); White Blood Count 16.5 K/mm3 (4.4-11.0)
[2020-11-10 14:25] LABS: T4 Free Direct 0.86 ng/dL (0.76-1.46)
== END ==
PROVIDERS: Visit Provider Obstetrics & Gynecology
DX: N92.0 Excessive and frequent menstruation with regular cycle (principal); E03.9 Hypothyroidism, unspecified
CPT/HCPCS: 36415; 84439; 84443; 85027

== ENCOUNTER 2022-02-22 19:43 | Emergency (ER) | payer BC, SELFPAY ==
[2022-02-22 19:44] VITALS: BP 191/104; PULSE 89; RESP 14; TEMP 36.3; O2SAT 98; BMI 50.1
--- NOTE | 2022-02-22 19:53 | CT_ITS ---
STUDY: CT Abdomen And Pelvis W/O Contrast Injection 02/22/2022 9:06 PM REASON FOR EXAM: Female, 36 years old. ABDOMINAL PAIN Kidney Stone -- Status post bilateral tubal ligation TECHNIQUE: Transaxial images were obtained without oral contrast, and without intravenous contrast. Individualized dose optimization techniques were used for this CT. COMPARISON: None. FINDINGS: The visualized lung bases are unremarkable. The visualized portions of the heart are within normal limits. There is hepatomegaly with diffuse hepatic enlargement. There are surgical clips in the gallbladder fossa consistent with a prior cholecystectomy. Unremarkable spleen. Unremarkable pancreas. Unremarkable bilateral adrenal glands. Non obstructive 2 mm right renal parenchymal stones. Moderate hydronephrosis caused by 3.7 mm and a 3mm proximal right ureteral stone. No acute findings of the left kidney. Unremarkable visualized stomach. Unremarkable small intestine. Unremarkable colon. The appendix is visualized and appears unremarkable. There are no acute findings of the abdominal aorta. Unremarkable inferior vena cava. Subcentimeter mesenteric lymph nodes. Unremarkable urinary bladder. Normal visualized uterus. There is an umbilical hernia containing fat. There are diffuse degenerative changes of the visualized lumbar spine. There are bilateral pars articularis defects at L5-S1. CT/Abdomen/Pelvis without Cont IMPRESSION: (NOT LISTED IN ORDER OF SIGNIFICANCE) Moderate hydronephrosis caused by 3.7 mm proximal right ureteral stone Enlarged liver. Other findings as above. Electronically Signed: Roderick Sharp MD at 21:10 EDT ,
--- NOTE | 2022-02-22 20:28 | EDS_ITS ---
HPI History of Present Illness Chief Complaint: Flank Pain Detail of Chief Complaint: Right flank pain radiating anteriorly Informant: patient Onset/Context/Timing Onset: Yesterday Context: Sudden Onset Timing: Continuous and Waxes and wanes Quality: Pain Location: Predominantly right flank Current Severity: Moderate Maximum Severity: Severe Worsened by: Nothing Relieved by: Nothing Associated Symptoms Associated Symptoms: Nausea and vomiting Narrative Narrative: Patient is a 36-year-old woman status post bilateral tubal ligation who presents with abrupt onset of right flank pain that radiates anteriorly. She is present on her menses. She states she had a similar presentation 2 years ago. Presumption was she had a stone. Imaging was not performed at that time. She denies dysuria, frequency or urgency. She is unable to turn if she has hematuria since she is presently menstruating. She has a remote history of ovarian cyst x1. She denies history of polycystic ovarian disease. She denies respiratory symptoms. There is no history of trauma. Prior similar symptoms: Yes (2 years ago) Recent Illness/Hospitalization: No PFSH PFSH Medical History (Updated 02/22/22 @ 22:[address] Ranjith London MD) Anxiety and depression Paroxysmal atrial fibrillation Sleep apnea Home Medications cholecalciferol (vitamin D3) 125 mcg (5,000 unit) disintegrating tablet 5,000 unit PO DAILY supplement 09/12/19 [History Last Taken Unknown] acetaminophen 500 mg tablet 1,000 mg PO Q8H PRN Pain Score 1-310 09/21/19 [Rx Last Taken Unknown] ibuprofen 600 mg tablet 600 mg PO Q6H PRN PRN Pain Score 1-309/21/19 [Rx Last Taken Unknown] escitalopram oxalate 20 mg tablet (Lexapro) 20 mg PO DAILY 09/22/20 [History Last Taken Unknown] naproxen 500 mg tablet 500 mg PO BID #14 tabs 02/22/22 [Rx Last Taken Unknown] oxycodone-acetaminophen 5 mg-325 mg tablet 1 tab PO Q6H PRN PRN pain 5 days #20 TABLETS 02/22/22 [Rx Last Taken Unknown] Allergy/AdvReac Type Severity Reaction Status Date / Time No Known Allergies Allergy Verified 02/22/22 19:44 Surgical History Previous section Social History (Updated 02/22/22 @ 20:[address] Ranjith London MD) household members: spouse and children Smoking Status: Current every day smoker tobacco type: cigarettes Tobacco: How many years used: 10 substance use type: does not use ROS ROS ED Constitutional Constitutional ED: Denies chills, fever(s), subjective, sweats or weight loss Eyes Eyes: Denies blurry vision, change in vision or diplopia ENT ENT ED: Denies ear pain, rhinorrhea or sore throat Cardiovascular Cardiovascular: Denies chest pain, orthopnea, palpitations, paroxysmal nocturnal dyspnea or racing heartbeat Respiratory/Chest Respiratory/Chest: Denies cough, dyspnea, dyspnea on exertion, orthopnea or paroxysmal nocturnal dyspnea Gastrointestinal Gastrointestinal: Reports abdominal pain, nausea and vomiting; Denies constipation, diarrhea or melena Genitourinary Genitourinary ED: Denies dysuria, hematuria or urinary frequency Musculoskeletal Musculoskeletal: Reports back pain; Denies arthralgias, myalgias or neck pain Integumentary Denies abscess, Abrasions or rash Neurologic Neurologic: Denies headache(s), paresthesias or weakness Hematologic/Lymphatic Hematologic/Lymphatic: Reports systems reviewed and no addt'l complaints, except as documented EXAM Physical Exam Const Vital Signs: 02/22/22 19:44 Temperature 97.3 F L Temperature Source Temporal Pulse Rate 89 Respiratory Rate 14 Blood Pressure 191/104 H Blood Pressure Mean 133 Pulse Ox 98 Oxygen Delivery Method Room Air Positive well nourished, well developed and obese Constitutional Narrative: Patient appears uncomfortable. General Appearance ED: well developed; Negative for NAD or pallor Nutritional Appearance: obese HEENT Reports moist mucous membranes HEENT Narrative: Head is atraumatic normocephalic. Ears normal. Nares patent. Mucosa moist. Ears normal. Eyes PERRL and EOMs intact bilaterally General Eye ED: Negative for pale conjunctiva or scleral icterus Neck no lymphadenopathy, supple and no JVD Resp normal respiratory effort and clear to auscultation bilaterally Cardio regular rate, regular rhythm, S1 normal heart sound, S2 normal heart sound and no murmurs GI normal to inspection, nondistended, normoactive bowel sounds, non-tender, non- distended and no masses; Negative for hepatosplenomegaly Back/Spine no CVA tenderness Cervical Spine: Negative for cervical spine tenderness Thoracic Spine / Upper Back: Negative for thoracic spinal tenderness Lumbar Spine / Lower Back: Negative for lumbar spinal tenderness Extremity normal to inspection General Extremety ED: Negative for edema or tenderness General Extremity: Negative for edema Psych mental status grossly normal Skin no rashes or lesions noted, no wounds and skin turgor normal General Skin Exam: Negative for jaundice or pallor MDM MDM MDM Narrative Medical decision making narrative: Abrupt onset of right flank pain radiating anteriorly concerned patient may have a kidney stone. Doubt biliary colic/cholelithiasis. Doubt pyelonephritis. Patient was medicated with Zofran, morphine and ketorolac. Appropriate blood work was obtained as well as CT of the abdomen and pelvis without contrast to evaluate for obstructing ureteral stone. Lab Data Attestation: I reviewed the patient's lab results. Lab results narrative: Your weight reveals hematuria without evidence of infection. Patient was discharged home with prescription for NSAID and open analgesia. She was referred to urology. Labs: Laboratory Results - last 24 hr 02/22/22 21:16 Urine Color Yellow Urine Clarity Sl. Cloudy Urine pH 6.5 Ur Specific [place] 1.015 Urine Protein 30 H Urine Glucose (UA) Normal Urine Ketones Negative Urine Occult Blood 250 H Urine Nitrite Negative Urine Bilirubin Negative Urine Urobilinogen Normal Ur Leukocyte Esterase 25 H Urine RBC 50-100 SEEN Urine WBC 0-5 SEEN Ur Squamous Epith Cells 0-5 SEEN Urine Bacteria 0 SEEN Urine Mucus 0 SEEN Radiography Diagnostic Testing: Clinical Impression(s) from Imaging Studies Abdomen/Pelvis CT 02/22/22 19:53 IMPRESSION: (NOT LISTED IN ORDER OF SIGNIFICANCE) Moderate hydronephrosis caused by 3.7 mm proximal right ureteral stone Enlarged liver. Other findings as above. Electronically Signed: Roderick Sharp MD at 21:10 EDT Reading Location ID and State: [facility] / [place] , Service support , There is mild hydronephrosis on the right with a proximal ureteral stone approximately 5 mm in size. Discharge Plan Triage Chief Complaint: Flank Pain ED Provider: Ranjith London Dx/Rx/DC Orders Clinical Impression: Hydronephrosis with urinary obstruction due to ureteral calculus, Gross hematuria Instructions: ED Kidney Stone w/ Colic Prescriptions: New oxycodone-acetaminophen [oxycodone-acetaminophen] 5-325 mg tablet 1 tab PO Q6H PRN PRN (Reason: pain) 5 Days Qty: 20 0RF naproxen 500 mg tablet 500 mg PO BID Qty: 14 0RF No Action escitalopram oxalate [Lexapro] 20 mg tablet 20 mg PO DAILY cholecalciferol (vitamin D3) 5,000 UNIT tablet,disintegrating 5,000 unit PO DAILY acetaminophen 500 MG tablet 1,000 mg PO Q8H PRN (Reason: Pain Score 1-3/10) 0RF ibuprofen 600 MG tablet 600 mg PO Q6H PRN PRN (Reason: Pain Score 1-3/10) 0RF Primary Care Provider: Care Physician,No Primary Referrals: Ifrah Cantu MD [Med Staff - Active Staff] - 5-7 Days Care Physician,No Primary [Primary Care Provider] - Disposition Disposition: Home, Self Care
[2022-02-22] MEDS: 0.9% Normal Saline 1,000 ML 250 ML IV (20:30)
[2022-02-22] MEDS: morphine 8 MG/ML Syringe IV (20:30)
[2022-02-22] MEDS: Ketorolac 15 MG/ML Vial IV (20:30)
[2022-02-22] MEDS: Ondansetron 4 MG/2 ML Vial IV (20:30)
[2022-02-22 21:24] LABS: Bacteria 0 SEEN /hpf (None Seen); Mucous, Urine 0 SEEN /hpf (<or=2+)
[2022-02-22 21:28] LABS: Color, Urine Yellow (Yellow); Glucose, Dipstick Normal (Normal); Ketone-Dipstick Negative (Negative); Leukocyte Esterase-Dipstick 25 /ul (Negative); Nitrite-Dipstick Negative (Negative); Occult Blood-Urine 250 /ul (Negative); Protein-Dipstick 30 mg/dl (Negative); Specific Gravity, Urine 1.015 (1.002-1.030); Urine Bilirubin Dipstick Negative (Negative); Urine Clarity Sl. Cloudy (Clear); Urine Urobilinogen Normal (Normal); Urine pH 6.5 (5.0 - 8.0)
[2022-02-22 21:58] LABS: Red Blood Cells-Urine 50-100 SEEN /hpf (0-5); Squamous Epithelial Cells - UA 0-5 SEEN /hpf (5-10); White Blood Cells 0-5 SEEN /hpf (0-5)
== END 2022-02-22 22:16 | disposition home or self-care (01) ==
PROVIDERS: Emergency Provider Emergency Medicine; Visit Provider Emergency Medicine
DX: N13.2 Hydronephrosis with renal and ureteral calculous obstruction (principal); I48.0 Paroxysmal atrial fibrillation; Z68.43 Body mass index [BMI] 50.0-59.9, adult; F17.210 Nicotine dependence, cigarettes, uncomplicated; F41.9 Anxiety disorder, unspecified; F32.A Depression, unspecified; Z79.899 Other long term (current) drug therapy; G47.30 Sleep apnea, unspecified; E66.9 Obesity, unspecified
CPT/HCPCS: 74176; 81001; 96361; 96374; 96375; 99284; J7030; A4216; J2405

== ENCOUNTER 2022-03-04 06:15 | Day surgery (SDC) | payer BC, SELFPAY ==
[2022-03-04] VITALS (8 sets, daily range): BP systolic 101–156; BP diastolic 57–103; PULSE 66–85; RESP 16; TEMP 36.3–37.1; O2SAT 16–98; BMI 55.3
--- NOTE | 2022-03-04 06:26 | CT_ITS ---
STUDY: CT ABDOMEN AND PELVIS WITHOUT CONTRAST REASON FOR EXAM: Female, 36 years old. Kidney stone RADIATION DOSAGE (If Supplied By Facility): CTDIvol = ( 22.71 ) mGy, DLP = ( 1189.73 ) mGycm TECHNIQUE: Transaxial images were obtained from the dome of the diaphragm to the symphysis pubis without oral contrast, and without intravenous contrast. Sagittal and coronal images were reconstructed. Individualized dose optimization techniques were used for this CT. COMPARISON: 02/22/2022 FINDINGS: The visualized lung bases are unremarkable. The visualized portions of the heart are within normal limits. Normal liver. There are surgical clips in the gallbladder fossa consistent with a prior cholecystectomy. Normal spleen. Normal pancreas. Normal bilateral adrenal glands. 8 mm right proximal ureter calculus with moderate hydronephrosis. Normal left kidney. Normal visualized stomach. Normal small intestine. Normal colon. The appendix is visualized and appears normal. Normal abdominal aorta. Normal inferior vena cava. Normal retroperitoneum. Normal urinary bladder. Normal visualized uterus. Fat-containing umbilical hernia. Bilateral L5 pars defects redemonstrated. CT/Abdomen/Pelvis without Cont IMPRESSION: Obstructing right proximal ureter calculus has progressed perhaps 5 cm compared to 02/22/2022. Hydronephrosis is similar. RIGHT perinephric fat stranding no longer demonstrated. Electronically Signed: Rajendra Li MD at 7:25 EDT ,
[2022-03-04] MEDS: 0.9% Normal Saline 1,000 ML 999 ML IV (06:33)
[2022-03-04] MEDS: Ondansetron 4 MG/2 ML Vial IV (06:33)
[2022-03-04] MEDS: Morphine 4 MG/ML Syringe IV (06:34)
[2022-03-04 06:35] LABS: Absolute Lymphocyte Count 2.91 X10^3/uL (0.83-4.51); Absolute Neutrophil Count 10.6 X10^3/uL (2.0-7.7); Basophil# 0.07 X10^3/uL; Basophil% 0.5 % (0-1); Eosinophil# 0.37 X10^3/uL; Eosinophils% 2.5 % (0-5); Hematocrit 46.4 % (37-47); Hemoglobin 14.9 g/dL (12.0-15.0); Lymphocyte # 2.91 X10^3/ul (0.83-4.51); Lymphocyte % 19.6 % (19-41); Mean Corp Hgb Conc 32.1 g/dL (32-36); Mean Corpuscular Hgb 29.5 pg (27.0-32.0); Mean Corpuscular Volume 91.9 fL (81-99); Mean Platelet Vol. 11.3 fl (6.2-12.0); Monocyte# 0.79 X10^3/uL; Monocyte% 5.3 % (0-10); NRBC Flagged by Analyzer 0 % (0-5); Neutrophil % 71.5 % (47-70); Platelet Count 250 K/mm3 (150-450); RBC Distribution Width CV 13.2 % (11.6-14.6); RBC Distribution Width SD 44.4 fl (35.1-43.9); Red Blood Count 5.05 M/mm3 (4.2-5.4); White Blood Count 14.8 K/mm3 (4.4-11.0)
[2022-03-04 06:42] LABS: Bacteria 0 SEEN /hpf (None Seen); Mucous, Urine 0 SEEN /hpf (<or=2+); Red Blood Cells-Urine 0 SEEN /hpf (0-5)
--- NOTE | 2022-03-04 06:42 | EDS_ITS ---
HPI History of Present Illness Chief Complaint: Flank Pain Narrative Narrative: Patient is a 36-year-old female who was seen on February 22 secondary to flank pain and found to have 2 stones in her right proximal ureter and this was leading to mild to moderate hydronephrosis. Despite this she had stable labs and no signs of acute kidney injury or urosepsis and her pain was improved so she was discharged home. Patient states that she was taking the naproxen and Percocet as directed and was having mild to moderate improvement of symptoms. However she states that she was never pain-free. She reports that this morning the pain began to worsen despite taking the meds and secondary to this she presents for reevaluation. [facility] Medical History (Updated 03/04/22 @ 07:[address] Yunior Bello DO) Anxiety and depression Paroxysmal atrial fibrillation Sleep apnea Home Medications cholecalciferol (vitamin D3) 125 mcg (5,000 unit) disintegrating tablet 5,000 unit PO DAILY supplement 09/12/19 [History Last Taken Unknown] acetaminophen 500 mg tablet 1,000 mg PO Q8H PRN Pain Score 1-309/21/19 [Rx Last Taken Unknown] ibuprofen 600 mg tablet 600 mg PO Q6H PRN PRN Pain Score 1-3/10 09/21/19 [Rx Last Taken Unknown] escitalopram oxalate 20 mg tablet (Lexapro) 20 mg PO DAILY 09/22/20 [History Last Taken Unknown] naproxen 500 mg tablet 500 mg PO BID #14 tabs 02/22/22 [Rx Last Taken Unknown] oxycodone-acetaminophen 5 mg-325 mg tablet 1 tab PO Q6H PRN PRN pain 5 days #20 TABLETS 02/22/22 [Rx Last Taken Unknown] Allergy/AdvReac Type Severity Reaction Status Date / Time No Known Allergies Allergy Verified 03/04/22 06:18 Surgical History Previous section Social History (Updated 02/22/22 @ 20:[address] Ranjith London MD) household members: spouse and children Smoking Status: Current every day smoker tobacco type: cigarettes Tobacco: How many years used: 10 substance use type: does not use ROS ROS ED Constitutional Constitutional ED: Denies chills or fever(s) ENT ENT ED: Denies sore throat Cardiovascular Cardiovascular: Denies chest pain Respiratory/Chest Respiratory/Chest: Denies cough or dyspnea Gastrointestinal Gastrointestinal: Reports abdominal pain and nausea; Denies diarrhea or vomiting Genitourinary Genitourinary ED: Reports other Details: Positive right flank pain ; Denies dysuria Musculoskeletal Musculoskeletal: Reports back pain; Denies myalgias Integumentary Denies rash Neurologic Neurologic: Denies headache(s) Hematologic/Lymphatic Hematologic/Lymphatic: Denies easy bleeding or easy bruising EXAM Physical Exam Const Vital Signs: 03/04/22 06:15 Temperature 97.5 F L Temperature Source Temporal Pulse Rate 85 Respiratory Rate 16 Blood Pressure 156/103 H Blood Pressure Mean 120 Pulse Ox 97 Oxygen Delivery Method Room Air Positive well nourished and well developed General Appearance ED: well developed Eyes PERRL and EOMs intact bilaterally Neck supple Resp normal respiratory effort and clear to auscultation bilaterally Cardio regular rate and regular rhythm Rate: other Other Details: Radial pulses are plus 2 out of 4 bilaterally are equal and symmetric GI non-distended GI Narrative: Abdomen is soft and nondistended with hypoactive bowel sounds. There is pain with palpation diffusely of the right abdomen without voluntary guarding or rigidity. No pulsatile mass or fluid wave Auscultation: hypoactive bowel sounds Palpation: soft Back/Spine Back/Spine Narrative: Positive right CVA pain Extremity normal to inspection Neuro oriented x3 and CN's II-XII intact bilaterally Sensorium / Orientation: alert Motor Exam: strength 5/5 throughout Psych mental status grossly normal Skin no rashes or lesions noted Skin Narrative: No overlying soft tissue changes to suggest trauma or infection MDM MDM MDM Narrative Medical decision making narrative: Patient presented to the ER hypertensive but does have a history of this and is in pain which is a normal physiologic response. She had a CT scan roughly 9 days ago documented stones within the right ureter and she reported that pain had never really improved. Therefore there is concern that the stones have remained impacted and have now led to acute kidney injury. Secondary to this basic blood work urine sample and a noncontrast CT were obtained. White blood cell count is elevated at 14.8 but this is slightly down from 9 days ago and her urine sample does not show any signs of infection. Kidney function is normal at 0.78 going against acute kidney injury but CT scan shows that the stones have only progressed minimally down the ureter. Secondary to the minimal progression of the stones over 9 days with intractable pain urology will be contacted to discuss admission with stent placement. The case was discussed with Dr. Cantu. She will evaluate the patient in the ER and decide if patient needs taken to surgery today for stent placement. Lab Data Attestation: I reviewed the patient's lab results. Labs: Laboratory Results - last 24 hr 03/04/22 03/04/22 03/04/22 06:25 06:25 06:30 WBC 14.8 H RBC 5.05 Hgb 14.9 Hct 46.4 MCV 91.9 MCH 29.5 MCHC 32.1 RDW Std Deviation 44.4 H RDW Coeff of Jose 13.2 Plt Count 250 MPV 11.3 Immature Gran % (Auto) 0.600 Neut % (Auto) 71.5 H Lymph % (Auto) 19.6 [place] % (Auto) 5.3 Eos % (Auto) 2.5 Baso % (Auto) 0.5 Absolute Neuts (auto) 10.6 H Absolute Lymphs (auto) 2.91 Nucleated RBC % 0 Sodium 139 Potassium 4.2 Chloride 106 Carbon Dioxide 26.0 Anion Gap 7 BUN 16 Creatinine 0.78 Estim Creat Clear Calc 98.83 Est GFR (MDRD) Af Amer 109 Est GFR (MDRD) Non-Af 90 BUN/Creatinine Ratio 20.6 H Glucose 130 H Calcium 9.1 Urine Color Yellow Urine Clarity Clear Urine pH 6.0 Ur Specific [place] 1.015 Urine Protein 15 H Urine Glucose (UA) Normal Urine Ketones Negative Urine Occult Blood 25 H Urine Nitrite Negative Urine Bilirubin Negative Urine Urobilinogen Normal Ur Leukocyte Esterase 25 H Urine RBC 0 SEEN Urine WBC 0-5 SEEN Ur Squamous Epith Cells 0-5 SEEN Urine Bacteria 0 SEEN Urine Mucus 0 SEEN Discharge Plan Triage Chief Complaint: Flank Pain ED Provider: Yunior Bello Dx/Rx/DC Orders Clinical Impression: Kidney stone on right side, Renal colic Prescriptions: No Action escitalopram oxalate [Lexapro] 20 mg tablet 20 mg PO DAILY cholecalciferol (vitamin D3) 5,000 UNIT tablet,disintegrating 5,000 unit PO DAILY acetaminophen 500 MG tablet 1,000 mg PO Q8H PRN (Reason: Pain Score 1-3/10) 0RF ibuprofen 600 MG tablet 600 mg PO Q6H PRN PRN (Reason: Pain Score 1-3/10) 0RF oxycodone-acetaminophen [oxycodone-acetaminophen] 5-325 mg tablet 1 tab PO Q6H PRN PRN (Reason: pain) 5 Days Qty: 20 0RF naproxen 500 mg tablet 500 mg PO BID Qty: 14 0RF Primary Care Provider: Robert Narayanan Referrals: Care Physician,No Primary [Non-Staff] - Ifrah Cantu MD [Med Staff - Active Staff] - 1-2 Days if not improving
[2022-03-04 06:44] LABS: Color, Urine Yellow (Yellow); Glucose, Dipstick Normal (Normal); Ketone-Dipstick Negative (Negative); Leukocyte Esterase-Dipstick 25 /ul (Negative); Nitrite-Dipstick Negative (Negative); Occult Blood-Urine 25 /ul (Negative); Protein-Dipstick 15 mg/dl (Negative); Specific Gravity, Urine 1.015 (1.002-1.030); Urine Bilirubin Dipstick Negative (Negative); Urine Clarity Clear (Clear); Urine Urobilinogen Normal (Normal)
[2022-03-04 06:47] LABS: Anion Gap 7 (5-15); BUN 16 mg/dL (7-18); BUN/Creat Ratio 20.6 RATIO (10-20); Calcium,Total 9.1 mg/dL (8.5-10.1); Chloride 106 mmol/L (98-107); Creatinine, Serum 0.78 mg/dL (0.55-1.02); EST Glomerular Filtration Rate 90 mL/min (>60); Est Glom Filt Rate - Afr Amer 109 mL/min (>60); Estimated Creatinine Clearance 98.83 ml/min; Glucose 130 mg/dL (74-106); Potassium 4.2 mmol/L (3.5-5.1); Sodium Level 139 mmol/L (136-145)
[2022-03-04 06:58] LABS: Squamous Epithelial Cells - UA 0-5 SEEN /hpf (5-10); White Blood Cells 0-5 SEEN /hpf (0-5)
[2022-03-04] MEDS: Ketorolac 30 MG/ML Syringe IV (07:25)
--- NOTE | 2022-03-04 10:43 | PCM.HP.STD ---
HPI - General General Date of Admission: 03/04/22 Date of Service: 03/04/22 Chief Complaint: Right flank pain HPI Narrative CHIOMA ALFONSO, is a 36 F who was diagnosed with a obstructing right proximal ureteral calculus approximately 1-1/2 weeks ago. She has an appointment to see me in the office on Tuesday, however her pain was too much today and she really presented to the emergency room. She has been having nausea, and chills but no fever. She has no hematuria, dysuria, urgency or frequency. Her pain is mostly still in her back. She is otherwise relatively healthy patient. [facility] Medical History (Updated 03/04/22 @ 10:[address] Ifrah Cantu MD) Anxiety and depression Paroxysmal atrial fibrillation Right ureteral stone Sleep apnea Home Medications cholecalciferol (vitamin D3) 125 mcg (5,000 unit) disintegrating tablet 5,000 unit PO DAILY supplement 09/12/19 [History Last Taken Unknown] acetaminophen 500 mg tablet 1,000 mg PO Q8H PRN Pain Score 1-309/21/19 [Rx Last Taken Unknown] ibuprofen 600 mg tablet 600 mg PO Q6H PRN PRN Pain Score 1-310 09/21/19 [Rx Last Taken Unknown] escitalopram oxalate 20 mg tablet (Lexapro) 20 mg PO DAILY 09/22/20 [History Last Taken Unknown] naproxen 500 mg tablet 500 mg PO BID #14 tabs 02/22/22 [Rx Last Taken Unknown] oxycodone-acetaminophen 5 mg-325 mg tablet 1 tab PO Q6H PRN PRN pain 5 days #20 TABLETS 02/22/22 [Rx Last Taken Unknown] Allergy/AdvReac Type Severity Reaction Status Date / Time No Known Allergies Allergy Verified 03/04/22 06:18 Surgical History Previous section Social History household members: spouse and children Smoking Status: Current every day smoker tobacco type: cigarettes Tobacco: How many years used: 10 substance use type: does not use ROS Constitutional Constitutional: Reports chills, snoring and stops breathing during sleep; Denies fever(s) or headache(s) Eyes Eyes: Reports systems reviewed and no addt'l complaints, except as documented ENT HEENT: Reports systems reviewed and no addt'l complaints, except as documented Cardiovascular Cardiovascular: Denies chest pain, diaphoresis, dyspnea at rest or hypertension Respiratory/Chest Respiratory/Chest: Denies chest tightness or dyspnea Gastrointestinal Gastrointestinal: Reports nausea; Denies vomiting Genitourinary Genitourinary: Reports flank pain and low back pain; Denies difficulty urinating, dysuria, hematuria, urinary frequency, urinary hesitancy or urinary urgency Musculoskeletal Musculoskeletal: Reports systems reviewed and no addt'l complaints, except as documented Integumentary Integumentary: Reports systems reviewed and no addt'l complaints, except as documented Neurologic Neurologic: Reports systems reviewed and no addt'l complaints, except as documented Psychiatric Psychiatric: Reports systems reviewed and no addt'l complaints, except as documented Endocrine Endocrinology: Reports systems reviewed and no addt'l complaints, except as documented Hematologic/Lymphatic Hematologic/Lymphatic: Reports systems reviewed and no addt'l complaints, except as documented Allergic/Immunologic Allergic/Immunologic: Reports systems reviewed and no addt'l complaints, except as documented Vital Signs Vital Signs Vital Signs: 03/04/22 06:15 03/04/22 07:55 Temperature 97.5 F L 97.3 F L Temperature Source Temporal Temporal Pulse Rate 85 66 Respiratory Rate 16 16 Blood Pressure 156/103 H 123/81 H Blood Pressure Mean 120 95 Pulse Ox 97 97 Oxygen Delivery Method Room Air Room Air Weight Weight: 160.1 kg Body Mass Index (BMI) 55.3 Physical Exam Const alert, oriented x3 and no apparent distress General Appearance: cooperative and comfortable HEENT normocephalic and head/scalp atraumatic Eyes conjunctivae normal and no scleral icterus General Eye: normal appearance of both eyes Neck supple General: trachea midline Lymph Lymphatic: no lymphedema noted Chest inspection of chest normal Chest: symmetrical chest wall rise Resp normal respiratory effort, normal air movement, no retractions and no use of accessory muscles Cardio regular rate and regular rhythm GI soft to palpation, non-tender and non-distended Bladder / Kidney Exam: CVA tenderness right Back/Spine General Back: CVA tenderness right Extremity normal to inspection Skin no rashes or lesions noted Neuro oriented x3, CN's II-XII intact bilaterally and moves all extremities Psych mental status grossly normal, thought process normal, cooperative and affect normal Results Lab / Micro Data Result Diagrams: 03/04/22 06:25 03/04/22 06:25 Labs: Laboratory Results - last 24 hr 03/04/22 06:25: WBC 14.8 H, RBC 5.05, Hgb 14.9, Hct 46.4, MCV 91.9, MCH 29.5, MCHC 32.1, RDW Std Deviation 44.4 H, RDW Coeff of Jose 13.2, Plt Count 250, MPV 11.3, Immature Gran % (Auto) 0.600, Neut % (Auto) 71.5 H, Lymph % (Auto) 19.6, [place] % (Auto) 5.3, Eos % (Auto) 2.5, Baso % (Auto) 0.5, Absolute Neuts (auto) 10.6 H, Absolute Lymphs (auto) 2.91, Nucleated RBC % 0 03/04/22 06:25: Sodium 139, Potassium 4.2, Chloride 106, Carbon Dioxide 26.0, Anion Gap 7, BUN 16, Creatinine 0.78, Estim Creat Clear Calc 98.83, Est GFR (MDRD) Af Amer 109, Est GFR (MDRD) Non-Af 90, BUN/Creatinine Ratio 20.6 H, Glucose 130 H, Calcium 9.1 03/04/22 06:30: Urine Color Yellow, Urine Clarity Clear, Urine pH 6.0, Ur Specific [place] 1.015, Urine Protein 15 H, Urine Glucose (UA) Normal, Urine Ketones Negative, Urine Occult Blood 25 H, Urine Nitrite Negative, Urine Bilirubin Negative, Urine Urobilinogen Normal, Ur Leukocyte Esterase 25 H, Urine RBC 0 SEEN, Urine WBC 0-5 SEEN, Ur Squamous Epith Cells 0-5 SEEN, Urine Bacteria 0 SEEN, Urine Mucus 0 SEEN Radiology Impression Abdomen/Pelvis CT 03/04/22 06:26 IMPRESSION: Obstructing right proximal ureter calculus has progressed perhaps 5 cm compared to 02/22/2022. Hydronephrosis is similar. RIGHT perinephric fat stranding no longer demonstrated. Electronically Signed: Rajendra Li MD at 7:25 EDT , Assessment & Plan Assessment/Plan (1) Right ureteral stone: PLAN: cystoscopy and right ureteral stent insertion home on antibiotics and pain control plan for ESWL as outpatient
--- NOTE | 2022-03-04 10:48 | OP.PCM_ITS ---
Report of Operation Date of Procedure: 03/04/22 Pre-Operative Diagnosis: right ureteral calculus Post-Operative Diagnosis: same Surgery/Procedure Performed:: cystoscopy with right ureteral stent insertion Surgeon: Ifrah Cantu Type of Anesthesia: MAC Specimen's removed: none Description of Procedure: The patient is a 36-year-old female with an obstructing right proximal ureteral calculus presenting for cystoscopy and insertion of right ureteral stent. Informed consent was obtained. The patient was taken to the operating room and placed on the operating room table. Anesthesia monitored the head, neck, airway, IV access and vital signs throughout the case. Once anesthesia was appropriately ministered the patient was placed into dorsal lithotomy position and was prepped and draped in usual sterile fashion. Through the urethra under direct visualization into the urinary bladder. The mucosa was visualized in its entirety and found to be without mass, erythema, ulceration or foreign body. The right ureteral orifice was identified and gently intubated with an 0.035 Glidewire which was seen in the right renal pelvis under fluoroscopic visualization. A 6 Bulgarian 26 cm JJ stent was then inserted over the wire with good positioning in the renal pelvis and the urinary bladder. The patient's bladder was emptied and the cystoscope was removed. The patient was awakened and taken the recovery room in good condition. There were no complications during this procedure. Grafts/Implants Used: 6Fr 26cm JJ stent Complications none Admit VTE Documentation VTE Present on Admission: Yes VTE Mechan Device Prophylaxis: SCD's VTE Pharm Prophylaxis ordered?: No Reason prophylaxis not ordered:: Treatment Not Indicated
--- NOTE | 2022-03-04 10:50 | DCINST_ITS ---
Discharge Instructions Diet Discharge Diet: No restrictions Activity Discharge Activity: Return to Normal Activity Dressing / Incision Call your doctor if you observe: Fever of 101 or Higher, Inability to urinate and Inability to have a bowel movement Follow Up Care Please Follow Up With: Ifrah Cantu MD When: call office for further instructions Test Results: Test results from this visit will be discussed in further detail at your follow- up appointment, if applicable. Discharge Plan Admission Attending Provider: Ifrah Cantu Primary Care Provider: Robert Narayanan Discharge Orders/Prescriptions Prescriptions: New cephalexin [cephalexin] 500 mg capsule 500 mg PO TID 5 Days Qty: 15 0RF oxycodone-acetaminophen [oxycodone-acetaminophen] 5-325 mg tablet 2 tab PO Q8H PRN PRN (Reason: Pain) 7 Days Qty: 20 0RF phenazopyridine [Pyridium] 200 mg tablet 200 mg PO TID PRN PRN (Reason: Bladder Spasms) 7 Days Qty: 30 0RF Continued escitalopram oxalate [Lexapro] 20 mg tablet 20 mg PO DAILY cholecalciferol (vitamin D3) 5,000 UNIT tablet,disintegrating 5,000 unit PO DAILY acetaminophen 500 MG tablet 1,000 mg PO Q8H PRN (Reason: Pain Score 1-3/10) 0RF ibuprofen 600 MG tablet 600 mg PO Q6H PRN PRN (Reason: Pain Score 1-3/10) 0RF oxycodone-acetaminophen 5-325 mg tablet 1 tab PO Q6H PRN PRN (Reason: pain) 5 Days Qty: 20 0RF naproxen 500 mg tablet 500 mg PO BID Qty: 14 0RF Referrals / Follow Up: Ifrah Cantu MD [Med Staff - Active Staff] - 1-2 Days if not improving Care Physician,No Primary [Non-Staff] - Disposition Disposition (needs filled in before D/C Order can be placed): Home, Self Care
--- NOTE | 2022-03-04 12:45 | RAD_ITS ---
STUDY: X-RAY - ABDOMEN/PELVIS REASON FOR EXAM: Female, 36 years old. Right ureteral stone -- in PACU TECHNIQUE: Single AP view of the abdomen / pelvis. COMPARISON: None. FINDINGS: There is an unremarkable bowel gas pattern. A right-sided double-J stent catheter is seen with the proximal tip in the region of the right renal pelvis and the distal tip is in the urinary bladder. The patient is status post cholecystectomy. RAD/Abdomen Single View (Portable) IMPRESSION: Status post right double J stent catheter placement. Electronically Signed: Heath Machado MD at 13:25 EDT ,
== END 2022-03-04 13:45 | disposition home or self-care (01) ==
LOC: ED 07:50 → SDC 08:18 → AC 08:19
PROVIDERS: Emergency Provider Emergency Medicine; PCP Family Medicine; Visit Provider Urology
PROC: (CPT 52332; principal; 2022-03-04 12:25)
DX: N13.2 Hydronephrosis with renal and ureteral calculous obstruction (principal); I48.0 Paroxysmal atrial fibrillation; Z68.43 Body mass index [BMI] 50.0-59.9, adult; I10 Essential (primary) hypertension; M54.9 Dorsalgia, unspecified; G47.33 Obstructive sleep apnea (adult) (pediatric); E66.9 Obesity, unspecified; F32.A Depression, unspecified; F41.9 Anxiety disorder, unspecified; F17.210 Nicotine dependence, cigarettes, uncomplicated; Z79.1 Long term (current) use of non-steroidal anti-inflammatories (NSAID); Z79.899 Other long term (current) drug therapy
CPT/HCPCS: 52332; 00910; 74018; 74176; 76000; 80048; 81001; 85025; 99283; C2617; J2405

== ENCOUNTER 2022-03-25 11:00 | Day surgery (SDC) | payer BC, SELFPAY ==
--- NOTE | 2022-03-25 | CALC_PTH ---
PATIENT: CHIOMA ALFONSO LOC: [facility] – [place] U#:[id number] AGE/SX: 36/F ROOM: RE03/25/[address]: Dr. Ifrah Cantu MD : 1985 BED: DIS: 03/25/2022 SPEC #: [id number] RECD: 03/26/22 10:27 STATUS: DAX MORELAND #: [id number] STEPHANIE: 03/25/22 00:[address]: Ifrah Cantu DEPT: SURGICAL PATHOLOGY RECD BY: Tiburcio Schumacher ENTERED: 03/26/22 10:27 SP TYPE: Calculi OTHR DR: Dr. Robert Narayanan MD Tissues: CALCULI Procedures: Surgery Specimen Level I HEADER OPERATION: Cysto, right stent removal, ureteroscopy, laser, stone basket PRE-OP DIAGNOSIS: Right ureteral calculus TISSUE SUBMITTED: Right ureteral calculi for analysis GROSS DIAGNOSIS Fragments of blood clots mixed with fragments of stone, clinically right ureteral calculus. SJ:mc 03/29/2022 COMMENT The calculus is submitted in its entirety for chemical stone analysis. The results from this study will be reported separately. GROSS DESCRIPTION Received without fixative labeled with the patient's name and designated right ureteral calculi. The specimen consists irregular fragments of blood clots mixed with fragments of stone measuring 1.5 x 0.5 x 0.1 cm. The entire specimen is submitted for stone analysis. MCKENNA:mc 03/26/2022 CPT: 19083
[2022-03-25 11:06] LABS: Internal QC Validated? YES +Cl - CLEAR BKGD
[2022-03-25 11:09] VITALS: BP 150/78; PULSE 77; RESP 16; TEMP 36.4; O2SAT 97; BMI 55.5
[2022-03-25 11:09] LABS: Pregnancy, Urine Negative Negative
[2022-03-25] MEDS: Lactated Ringers 1,000 ML 15 ML IV (11:16)
--- NOTE | 2022-03-25 15:42 | PCM.OPRPT ---
Report of Operation Date of Procedure: 03/25/22 Pre-Operative Diagnosis: Right ureteral calculus Post-Operative Diagnosis: Same Surgery/Procedure Performed:: Cystoscopy, right ureteroscopy, holmium laser lithotripsy, stone basket extraction, right ureteral stent change Surgeon: Ifrah Cantu Type of Anesthesia: General Specimen's removed: Ureteral Stone fragments Description of Procedure: The patient is a 36-year-old female with a right proximal ureteral calculus status post stent insertion who now presents for definitive management of her stone. Informed consent was obtained. The patient was taken to the operating room and placed on the operating room table. Anesthesia monitored the head, neck, airway, IV access and vital signs throughout the case. Once anesthesia was appropriate ministered, she was placed into dorsolithotomy position was prepped and draped in usual sterile fashion. The cystoscope was inserted through the urethra under direct visualization into the urinary bladder. There was so much edema at the distal right ureter I could not place a Glidewire alongside the stent. The stent was therefore grasped and brought to the meatus where it was intubated with a 0.035 Glidewire. A second Glidewire was then passed alongside it. The flexible ureteroscope was then passed over the Glidewire and visualization of the stone was obtained in the proximal third of the ureter. The stone was very long and shape and there was difficulty gaining access with the flexible ureteroscope. The decision was made to try with the semirigid ureteroscope. This was much easier and the 270 ?m laser was used to break the stone into multiple small pieces which were then basket retrieved without difficulty and sent for analysis. Once all visible stone fragments were removed, the ureter was edematous especially at the area where the stone was initially identified. There were no direct injuries aside from the edema identified on direct visualization as the ureteroscope was removed. The cystoscope was then used to insert a 6 x 26 JJ stent over the safety wire. There was good curling position within the renal pelvis as well as the urinary bladder. At this time the patient's bladder was emptied and the case was terminated. She was awakened and taken to the recovery room in good condition. There were no complications during the procedure. Grafts/Implants Used: 6 x 26 JJ stent Complications None Admit VTE Documentation VTE Present on Admission: Yes VTE Mechan Device Prophylaxis: SCD's VTE Pharm Prophylaxis ordered?: No Reason prophylaxis not ordered:: Treatment Not Indicated
--- NOTE | 2022-03-25 15:46 | DCINST_ITS ---
Discharge Instructions Diet Discharge Diet: No restrictions Activity Discharge Activity: Return to Normal Activity Dressing / Incision Call your doctor if you observe: Fever of 101 or Higher, Inability to urinate and Inability to have a bowel movement Follow Up Care Please Follow Up With: Ifrah Cantu MD When: Call the office for appointment for ureteral stent removal next week Test Results: Test results from this visit will be discussed in further detail at your follow- up appointment, if applicable. Discharge Plan Admission Attending Provider: Ifrah Cantu Primary Care Provider: Robert Narayanan Discharge Orders/Prescriptions Prescriptions: New oxycodone-acetaminophen [oxycodone-acetaminophen] 5-325 mg tablet 2 tab PO Q8H PRN PRN (Reason: Pain) 3 Days Qty: 20 0RF cephalexin [cephalexin] 500 mg capsule 500 mg PO Q12 3 Days Qty: 6 0RF phenazopyridine [Pyridium] 200 mg tablet 200 mg PO TID PRN PRN (Reason: Bladder Spasms) 7 Days Qty: 30 0RF Continued escitalopram oxalate [Lexapro] 20 mg tablet 20 mg PO DAILY cholecalciferol (vitamin D3) 5,000 UNIT tablet,disintegrating 5,000 unit PO DAILY ibuprofen 600 MG tablet 600 mg PO Q6H PRN PRN (Reason: Pain Score 1-3/10) 0RF phenazopyridine [Pyridium] 200 mg tablet 200 mg PO TID PRN PRN (Reason: Bladder Spasms) 7 Days Qty: 30 0RF ondansetron HCl 4 mg Tablet 4 mg PO Q6H PRN (Reason: Nausea) Referrals / Follow Up: Robert Narayanan MD [Primary Care Provider] - Disposition Disposition (needs filled in before D/C Order can be placed): Home, Self Care
[2022-03-25 15:50] VITALS: BP 128/91; BP 150/78; PULSE 98; RESP 16; TEMP 37; O2SAT 94
[2022-03-25 16:00] VITALS: BP 143/89; BP 150/78; PULSE 88; RESP 16; O2SAT 91
[2022-03-25 16:15] VITALS: BP 144/84; BP 150/78; PULSE 80; RESP 16; O2SAT 93
[2022-03-25 16:30] VITALS: BP 146/89; BP 150/78; PULSE 81; RESP 16; TEMP 36.4; O2SAT 93
[2022-03-25 16:55] VITALS: BP 150/78
[2022-05-14 15:42] LABS: Source Right Ureter
== END 2022-03-25 17:19 | disposition home or self-care (01) ==
LOC: SDC 17:37
PROVIDERS: Anesthesiology; PCP Family Medicine; Referring Provider Urology; Visit Provider Urology
PROC: 0TJ98ZZ Inspection of Ureter, Via Natural or Artificial Opening Endoscopic (ICD-10-PCS; CPT 52352; principal; 2022-03-25 11:55)
DX: N20.1 Calculus of ureter (principal); I48.0 Paroxysmal atrial fibrillation; Z68.43 Body mass index [BMI] 50.0-59.9, adult; F32.A Depression, unspecified; F41.9 Anxiety disorder, unspecified; G47.33 Obstructive sleep apnea (adult) (pediatric); E66.9 Obesity, unspecified; Z98.51 Tubal ligation status; F17.210 Nicotine dependence, cigarettes, uncomplicated; Z99.89 Dependence on other enabling machines and devices
CPT/HCPCS: 52356; 00918; 76000; 81025; 82360; 88300; J7120; J2405

== ENCOUNTER 2022-04-01 09:26 | Emergency (ER) | payer BC, SELFPAY ==
[2022-04-01 09:27] VITALS: BP 146/100; PULSE 97; RESP 17; TEMP 36.3; O2SAT 98; BMI 55.0
--- NOTE | 2022-04-01 10:45 | EDS_ITS ---
HPI History of Present Illness Chief Complaint: Flank Pain Detail of Chief Complaint: Right flank pain Informant: patient Narrative Narrative: Patient with right-sided flank pain worse over the last 2 days. Patient states that she had a procedure 6 days ago to break up a kidney stone on the right side and also had a ureteral stent placed. Her urologist is Dr. Cantu. Patient took a Percocet before coming in and it has not helped her pain. She rates her pain a 10 out of 10 on the right side. Pain radiates from the back to the groin. She also describes some dysuria. Patient did take a Pyridium prior to coming in. She denies fevers. She has had some nausea but no vomiting. Prior similar symptoms: Yes PFSH PFS Medical History (Updated 04/01/22 @ 13:[address] Kerrie Krause, ) Anxiety and depression CPAP (continuous positive airway pressure) dependence History of ankle fracture Migraine headache Non-smoker Paroxysmal atrial fibrillation Right ureteral stone Wears glasses Home Medications cholecalciferol (vitamin D3) 125 mcg (5,000 unit) disintegrating tablet 5,000 unit PO DAILY supplement 09/12/19 [History Last Taken Unknown] ibuprofen 600 mg tablet 600 mg PO Q6H PRN PRN Pain Score 1-3/10 09/21/19 [Rx Last Taken Unknown] escitalopram oxalate 20 mg tablet (Lexapro) 20 mg PO DAILY 09/22/20 [History Last Taken Unknown] phenazopyridine 200 mg tablet (Pyridium) 200 mg PO TID PRN PRN Bladder Spasms 7 days #30 tabs 03/04/22 [Rx Last Taken Unknown] ondansetron HCl 4 mg tablet 4 mg PO Q6H PRN Nausea 03/19/22 [History Last Taken Unknown] cephalexin 500 mg capsule 500 mg PO Q12 post-operative 3 days #6 CAPSULES 03/25/22 [Rx Last Taken Unknown] oxycodone-acetaminophen 5 mg-325 mg tablet 2 tab PO Q8H PRN PRN Pain 3 days #20 tabs 03/25/22 [Rx Last Taken Unknown] phenazopyridine 200 mg tablet (Pyridium) 200 mg PO TID PRN PRN Bladder Spasms 7 days #30 tabs 03/25/22 [Rx Last Taken Unknown] ciprofloxacin HCl 500 mg tablet 500 mg PO BID #14 TABLETS 04/01/22 [Rx Last Taken Unknown] oxycodone-acetaminophen 5 mg-325 mg tablet 1 tab PO Q6H PRN PRN Pain 3 days #12 TABLETS 04/01/22 [Rx Last Taken Unknown] Allergy/AdvReac Type Severity Reaction Status Date / Time No Known Allergies Allergy Verified 04/01/22 09:26 Surgical History Hx laparoscopic cholecystectomy Hx of cystoscopy Previous section Social History household members: spouse and children Smoking Status: Current every day smoker tobacco type: cigarettes Tobacco: How many years used: 10 substance use type: does not use ROS ROS ED Review of Systems ROS Unobtainable: other Constitutional Constitutional ED: Reports lethargy; Denies chills, fever(s), sweats or weight loss Eyes Eyes: Denies blurry vision, change in vision or diplopia ENT ENT ED: Denies rhinorrhea or sore throat Cardiovascular Cardiovascular: Denies chest pain, orthopnea or racing heartbeat Respiratory/Chest Respiratory/Chest: Denies cough, dyspnea, dyspnea on exertion, orthopnea or sputum Gastrointestinal Gastrointestinal: Reports abdominal pain and nausea; Denies diarrhea or vomiting Genitourinary Genitourinary ED: Denies dysuria, hematuria or urinary frequency Musculoskeletal Musculoskeletal: Reports back pain; Denies arthralgias, myalgias or neck pain Integumentary Denies abscess, Abrasions or rash Neurologic Neurologic: Denies headache(s) or weakness Psychiatric Psychiatric: Denies anxiety, depression or suicidal thoughts Endocrine Endocrinology: Denies polydipsia, polyphagia or polyuria Hematologic/Lymphatic Hematologic/Lymphatic: Denies easy bleeding, easy bruising or lymphadenopathy Allergic/Immunologic Allergic/Immunologic ED: Denies mouth swelling, tongue swelling or urticaria EXAM Physical Exam Const Vital Signs: 04/01/22 09:27 04/01/22 13:09 Temperature 97.4 F L Temperature Source Temporal Pulse Rate 97 79 Respiratory Rate 17 Blood Pressure 146/100 H 127/78 H Blood Pressure Mean 115 94 Pulse Ox 98 Oxygen Delivery Method Room Air Positive well nourished and well developed General Appearance ED: well developed and NAD HEENT Reports TM's clear and moist mucous membranes normocephalic and atraumatic; Negative for trauma or tenderness Tympanic Membrane ED: Yes TM's clear Eyes PERRL and EOMs intact bilaterally General Eye ED: Negative for pale conjunctiva or scleral icterus Neck no lymphadenopathy, supple and no JVD General: Negative for tenderness Chest Wall inspection of chest normal and palpation of chest normal Chest: Negative for tenderness Resp normal respiratory effort and clear to auscultation bilaterally Effort and Inspection: Negative for respiratory distress or pain with movement Auscultation: Negative for rhonchi, wheezes or diminished lung sounds Cardio regular rate, regular rhythm, S1 normal heart sound, S2 normal heart sound and no murmurs Peripheral Pulses: pulses 2+ throughout GI normal to inspection, nondistended, normoactive bowel sounds, soft to palpation, non-distended and no masses GI Narrative: Tenderness to palpation over right lower quadrant with some guarding. Patient has some mild CVA tenderness on the right. No rebound, rigidity, or peritoneal signs. Back/Spine no thoracic nor lumbar tenderness Back/Spine Narrative: Right-sided CVA tenderness. Extremity normal to inspection General Extremety ED: Negative for edema General Extremity: Negative for edema Neuro oriented x3, CN's II-XII intact bilaterally, no sensory deficits noted and gait normal Sensorium / Orientation: awake, alert, oriented to person, oriented to place and oriented to time Motor Exam: strength 5/5 throughout and strength abnormal Psych mental status grossly normal Skin no rashes or lesions noted and no wounds MDM MDM MDM Narrative Medical decision making narrative: PatientIV line established on arrival is medicated Dilaudid, Toradol, and Zofran. She had good pain relief with that. Lab work-up showed a elevated white count of 16.7 however she chronically seems to have an elevated white count around 12 or 13,000. Patient chemistries were unremarkable. Urinalysis was positive for nitrites as well as 5-10 WBCs and +2 bacteria. Urine was sent for culture. Patient was started on Rocephin [address] scan of the abdomen and pelvis showed a stent in the right ureter with the tip in the bladder. Patient had residual mild right hydronephrosis and right hydroureter. Case was discussed with patient's urologist who was in surgery but did present to the emergency department to evaluate the patient. At this point she is comfortable sending the patient home with pain medication and ciprofloxacin. Patient will be seen by her in the office tomorrow to have her stent removed. Lab Data Attestation: I reviewed the patient's lab results. Labs: Laboratory Results - last 24 hr 04/01/22 04/01/22 04/01/22 10:37 10:37 10:37 WBC 16.7 H RBC 4.82 Hgb 14.3 Hct 45.3 MCV 94.0 MCH 29.7 MCHC 31.6 L RDW Std Deviation 46.4 H RDW Coeff of Jose 13.5 Plt Count 243 MPV 11.1 Immature Gran % (Auto) 0.800 Neut % (Auto) 69.9 Lymph % (Auto) 22.1 [place] % (Auto) 4.8 Eos % (Auto) 2.1 Baso % (Auto) 0.3 Absolute Neuts (auto) 11.6 H Absolute Lymphs (auto) 3.68 Nucleated RBC % 0 Sodium 141 Potassium 4.3 Chloride 107 Carbon Dioxide 28.0 Anion Gap 6 BUN 15 Creatinine 0.58 Estim Creat Clear Calc 132.91 Est GFR (MDRD) Af Amer 153 Est GFR (MDRD) Non-Af 127 BUN/Creatinine Ratio 26.0 H Glucose 111 H Calcium 9.1 Urine Color Red Urine Clarity Cloudy Urine pH 6.5 Ur Specific [place] 1.015 Urine Protein 100 H Urine Glucose (UA) Normal Urine Ketones 5 H Urine Occult Blood 250 H Urine Nitrite Positive H Urine Bilirubin 6 H Urine Urobilinogen 8 H Ur Leukocyte Esterase 500 H Urine RBC > 100 SEEN Urine WBC 5-10 SEEN Ur Squamous Epith Cells 0-5 SEEN Urine Bacteria 2+ Urine Mucus 1+ Radiography Diagnostic Testing: Clinical Impression(s) from Imaging Studies Abdomen/Pelvis CT 04/01/22 11:18 IMPRESSION: Right-sided double-J stent catheter with residual mild right hydronephrosis and right hydroureter. The remainder of the examination is unchanged. Electronically Signed: Heath Machado MD at 12:07 EDT , Discharge Plan Triage Chief Complaint: Flank Pain ED Provider: Kerrie Krause Dx/Rx/DC Orders Clinical Impression: Acute flank pain, UTI (urinary tract infection) Instructions: ED Urinary Retention, Female, ED Kidney Stone w/ Colic Prescriptions: New ciprofloxacin HCl [ciprofloxacin HCl] 500 mg tablet 500 mg PO BID Qty: 14 0RF oxycodone-acetaminophen [oxycodone-acetaminophen] 5-325 mg tablet 1 tab PO Q6H PRN PRN (Reason: Pain) 3 Days Qty: 12 0RF No Action escitalopram oxalate [Lexapro] 20 mg tablet 20 mg PO DAILY cholecalciferol (vitamin D3) 5,000 UNIT tablet,disintegrating 5,000 unit PO DAILY ibuprofen 600 MG tablet 600 mg PO Q6H PRN PRN (Reason: Pain Score 1-3/10) 0RF phenazopyridine [Pyridium] 200 mg tablet 200 mg PO TID PRN PRN (Reason: Bladder Spasms) 7 Days Qty: 30 0RF ondansetron HCl 4 mg Tablet 4 mg PO Q6H PRN (Reason: Nausea) oxycodone-acetaminophen [oxycodone-acetaminophen] 5-325 mg tablet 2 tab PO Q8H PRN PRN (Reason: Pain) 3 Days Qty: 20 0RF cephalexin [cephalexin] 500 mg capsule 500 mg PO Q12 3 Days Qty: 6 0RF phenazopyridine [Pyridium] 200 mg tablet 200 mg PO TID PRN PRN (Reason: Bladder Spasms) 7 Days Qty: 30 0RF Primary Care Provider: Robert Narayanan Referrals: Robert Narayanan MD [Primary Care Provider] - Ifrah Cantu MD [Med Staff - Active Staff] - 1 Day Disposition Disposition: Home, Self Care
[2022-04-01 10:55] LABS: Color, Urine Red (Yellow); Glucose, Dipstick Normal (Normal); Ketone-Dipstick 5 mg/dl (Negative); Leukocyte Esterase-Dipstick 500 /ul (Negative); Nitrite-Dipstick Positive (Negative); Occult Blood-Urine 250 /ul (Negative); Protein-Dipstick 100 mg/dl (Negative); Specific Gravity, Urine 1.015 (1.002-1.030); Urine Clarity Cloudy (Clear); Urine Urobilinogen 8 mg/dl (Normal); Urine pH 6.5 (5.0 - 8.0)
[2022-04-01 11:02] LABS: Absolute Lymphocyte Count 3.68 X10^3/uL (0.83-4.51); Absolute Neutrophil Count 11.6 X10^3/uL (2.0-7.7); Basophil# 0.05 X10^3/uL; Basophil% 0.3 % (0-1); Eosinophil# 0.35 X10^3/uL; Eosinophils% 2.1 % (0-5); Hematocrit 45.3 % (37-47); Hemoglobin 14.3 g/dL (12.0-15.0); Lymphocyte # 3.68 X10^3/ul (0.83-4.51); Lymphocyte % 22.1 % (19-41); Mean Corp Hgb Conc 31.6 g/dL (32-36); Mean Corpuscular Hgb 29.7 pg (27.0-32.0); Mean Platelet Vol. 11.1 fl (6.2-12.0); Monocyte% 4.8 % (0-10); NRBC Flagged by Analyzer 0 % (0-5); Neutrophil # 11.64 X10^3/uL (2.7-7.7); Neutrophil % 69.9 % (47-70); Platelet Count 243 K/mm3 (150-450); RBC Distribution Width CV 13.5 % (11.6-14.6); RBC Distribution Width SD 46.4 fl (35.1-43.9); Red Blood Count 4.82 M/mm3 (4.2-5.4); White Blood Count 16.7 K/mm3 (4.4-11.0)
[2022-04-01 11:04] LABS: Urine Bilirubin Dipstick 6 mg/dL (Negative)
[2022-04-01 11:07] LABS: Anion Gap 6 (5-15); BUN 15 mg/dL (7-18); Calcium,Total 9.1 mg/dL (8.5-10.1); Chloride 107 mmol/L (98-107); Creatinine, Serum 0.58 mg/dL (0.55-1.02); EST Glomerular Filtration Rate 127 mL/min (>60); Est Glom Filt Rate - Afr Amer 153 mL/min (>60); Estimated Creatinine Clearance 132.91 ml/min; Glucose 111 mg/dL (74-106); Potassium 4.3 mmol/L (3.5-5.1); Sodium Level 141 mmol/L (136-145)
[2022-04-01 11:10] LABS: Red Blood Cells-Urine > 100 SEEN /hpf (0-5)
[2022-04-01 11:11] LABS: Bacteria 2+ /hpf (None Seen); Mucous, Urine 1+ /hpf (<or=2+); Squamous Epithelial Cells - UA 0-5 SEEN /hpf (5-10); White Blood Cells 5-10 SEEN /hpf (0-5)
--- NOTE | 2022-04-01 11:18 | CT_ITS ---
STUDY: CT ABDOMEN AND PELVIS WITHOUT CONTRAST REASON FOR EXAM: Female, 36 years old. Right flank pain RADIATION DOSAGE (If Supplied By Facility): CTDIvol = ( 24.18 ) mGy, DLP = ( 1377.32 ) mGycm TECHNIQUE: Transaxial images were obtained from the dome of the diaphragm to the symphysis pubis without oral contrast, and without intravenous contrast. Sagittal and coronal images were reconstructed. Individualized dose optimization techniques were used for this CT. COMPARISON: Comparison is made with prior study 03/04/2022. FINDINGS: The visualized lung bases are unremarkable. The visualized portions of the heart are within normal limits. Normal liver. There are surgical clips in the gallbladder fossa consistent with a prior cholecystectomy. There are multiple benign calcified granulomata of the spleen. Normal pancreas. There is a small, circumscribed, smooth, low attenuation left adrenal mass, consistent with an adrenal adenoma. This measures 7.5 mm. Normal right adrenal gland. A right-sided double-J stent catheter is seen. Residual mild right hydronephrosis. Right perinephric stranding. Mild right hydroureter. The distal tip of the catheter is within the right side of the bladder. Normal left kidney. There is a small hiatal hernia. Normal small intestine. Normal colon. The appendix is visualized and appears normal. Normal abdominal aorta. Normal inferior vena cava. Normal retroperitoneum. Normal urinary bladder. There is a moderate-sized hiatal hernia. Once again, there is a evidence of a spondylolysis of the pars interarticularis of the L5 vertebrae bilaterally. CT/Abdomen/Pelvis without Cont IMPRESSION: Right-sided double-J stent catheter with residual mild right hydronephrosis and right hydroureter. The remainder of the examination is unchanged. Electronically Signed: Heath Machado MD at 12:07 EDT ,
[2022-04-01] MEDS: Ketorolac 15 MG/ML Vial IV (11:43)
[2022-04-01] MEDS: Ondansetron 4 MG/2 ML Vial IV (11:43)
[2022-04-01] MEDS: 0.9% Normal Saline 1,000 ML 150 ML IV (11:43)
[2022-04-01] MEDS: HYDROmorphone 1 MG/ML Syringe IV (11:44)
[2022-04-01] MEDS: Ceftriaxone 1 GM/50 ML BAG IV (13:08)
[2022-04-01 13:09] VITALS: BP 127/78; PULSE 79
== END 2022-04-01 13:46 | disposition home or self-care (01) ==
PROVIDERS: Emergency Provider Emergency Medicine; PCP Family Medicine; Visit Provider Emergency Medicine
DX: N13.6 Pyonephrosis (principal); F17.210 Nicotine dependence, cigarettes, uncomplicated; Z90.49 Acquired absence of other specified parts of digestive tract
CPT/HCPCS: 74176; 80048; 81001; 85025; 87086; 87088; 87186; 96365; 96375; 99283; J7030; A4216; J2405

== ENCOUNTER → 2022-07-01 | Outpatient (CLI) | payer BC, SELFPAY | END | disposition home or self-care (01) | LOC: LABSPEC 16:41 | PROVIDERS: PCP Family Medicine; Visit Provider Otolaryngology | DX: J03.90 Acute tonsillitis, unspecified (principal) | CPT/HCPCS: 87070 ==

== ENCOUNTER → 2023-05-10 | Outpatient (CLI) | payer OTHER, SELFPAY ==
[2023-05-10 17:37] LABS: Absolute Lymphocyte Count 4.22 X10^3/uL (0.83-4.51); Absolute Neutrophil Count 10.7 X10^3/uL (2.0-7.7); Basophil# 0.09 X10^3/uL; Basophil% 0.6 % (0-1); Eosinophil# 0.37 X10^3/uL; Eosinophils% 2.3 % (0-5); Hemoglobin 14.5 g/dL (12.0-15.0); Lymphocyte # 4.22 X10^3/ul (0.83-4.51); Mean Corp Hgb Conc 30.9 g/dL (32-36); Mean Corpuscular Volume 90.7 fL (81-99); Mean Platelet Vol. 11.3 fl (6.2-12.0); Monocyte# 0.73 X10^3/uL; Monocyte% 4.5 % (0-10); NRBC Flagged by Analyzer 0 % (0-5); Neutrophil # 10.68 X10^3/uL (2.7-7.7); Neutrophil % 65.9 % (47-70); Platelet Count 315 K/mm3 (150-450); RBC Distribution Width CV 13.8 % (11.6-14.6); RBC Distribution Width SD 46.1 fl (35.1-43.9); Red Blood Count 5.18 M/mm3 (4.2-5.4); White Blood Count 16.2 K/mm3 (4.4-11.0)
[2023-05-10 18:33] LABS: ALB/GLOB Ratio 0.8 RATIO (0.9-2.4); AST(SGOT) 12 U/L (15-37); Alanine Aminotransfer ALT/SGPT 23 U/L (13-56); Albumin, Serum 3.4 g/dL (3.2-5.0); Alkaline Phosphatase 84 U/L (45-117); Anion Gap 8 (5-15); BUN 12 mg/dL (7-18); BUN/Creat Ratio 21.4 RATIO (10-20); Calcium,Total 9.1 mg/dL (8.5-10.1); Chloride 104 mmol/L (98-107); Creatinine, Serum 0.56 mg/dL (0.55-1.02); EST Glomerular Filtration Rate 130 mL/min (>60); Est Glom Filt Rate - Afr Amer 157 mL/min (>60); Globulin 4.5 g/dL (2.2-4.2); Glucose 95 mg/dL (74-106); Potassium 4.1 mmol/L (3.5-5.1); Protein, Total 7.9 g/dL (6.4-8.2); Sodium Level 136 mmol/L (136-145); Thyroid Stim Hormone (TSH) 1.71 uIU/mL (0.358-3.74)
== END | disposition home or self-care (01) ==
LOC: MFPLAB 16:52
PROVIDERS: PCP Family Medicine; Visit Provider Family Medicine
DX: F41.9 Anxiety disorder, unspecified (principal)
CPT/HCPCS: 36415; 80053; 84443; 85025

== ENCOUNTER → 2023-10-21 | Outpatient (CLI) | payer OTHER, SELFPAY ==
[2023-10-21 17:59] LABS: PTHIN 45.7 pg/mL (18.4-80.1)
[2023-10-21 18:12] LABS: Erythrocyte Sedimentation Rate 41 mm/hr (0-30)
[2023-10-21 18:15] LABS: Hematocrit 44.8 % (37-47); Hemoglobin 14.1 g/dL (12.0-15.0); Mean Corp Hgb Conc 31.5 g/dL (32-36); Mean Corpuscular Hgb 27.9 pg (27.0-32.0); Mean Corpuscular Volume 88.5 fL (81-99); Mean Platelet Vol. 11.6 fl (6.2-12.0); Platelet Count 271 K/mm3 (150-450); RBC Distribution Width CV 14.4 % (11.6-14.6); RBC Distribution Width SD 45.6 fl (35.1-43.9); Red Blood Count 5.06 M/mm3 (4.2-5.4); White Blood Count 15.4 K/mm3 (4.4-11.0)
[2023-10-21 18:20] LABS: ALB/GLOB Ratio 0.7 RATIO (0.9-2.4); AST(SGOT) 13 U/L (15-37); Alanine Aminotransfer ALT/SGPT 24 U/L (13-56); Albumin, Serum 3.2 g/dL (3.2-5.0); Alkaline Phosphatase 80 U/L (45-117); Anion Gap 4 (5-15); BUN 11 mg/dL (7-18); BUN/Creat Ratio 20.5 RATIO (10-20); Calcium,Total 9.1 mg/dL (8.5-10.1); Chloride 107 mmol/L (98-107); Creatinine, Serum 0.54 mg/dL (0.55-1.02); EST Glomerular Filtration Rate 137 mL/min (>60); Est Glom Filt Rate - Afr Amer 165 mL/min (>60); Globulin 4.3 g/dL (2.2-4.2); Glucose 102 mg/dL (74-106); Potassium 3.9 mmol/L (3.5-5.1); Protein, Total 7.5 g/dL (6.4-8.2); Sodium Level 137 mmol/L (136-145); Thyroid Stim Hormone (TSH) 1.72 uIU/mL (0.358-3.74)
== END | disposition home or self-care (01) ==
LOC: MFPLAB 16:57
PROVIDERS: PCP Family Medicine; Visit Provider Family Medicine
DX: R10.9 Unspecified abdominal pain (principal)
CPT/HCPCS: 36415; 80053; 83970; 84443; 85027; 85652; 86140

== ENCOUNTER → 2023-11-22 | Outpatient (CLI) | payer OTHER, SELFPAY ==
--- NOTE | 2023-11-22 18:51 | CT_ITS ---
STUDY: CT ABDOMEN AND PELVIS WITH CONTRAST REASON FOR EXAM: Female, 38 years old. Hernia. RADIATION DOSAGE (If Supplied By Facility): CTDIvol = ( 24 ) mGy, DLP = ( 1306 ) mGycm TECHNIQUE: Transaxial images were obtained through the abdomen and pelvis with oral contrast. 100 ml of Isovue-370 contrast was administered. Sagittal and coronal images were reconstructed. Individualized dose optimization techniques were used for this CT. COMPARISON: No relevant prior comparison study available FINDINGS: LOWER THORAX: The visualized lung bases are clear. The visualized portions of the heart and pericardium are within normal limits. GALLBLADDER / BILE DUCTS: The patient is status post cholecystectomy. There is no intrahepatic biliary duct dilatation. The common bile duct is normal in caliber. There are no calcified ductal stones. LIVER: The liver is enlarged and low in density, consistent with fatty infiltration. SPLEEN: The spleen is enlarged, measuring 14.4 cm. PANCREAS: The pancreas is within normal limits. ADRENAL GLANDS: The adrenal glands are within normal limits. KIDNEYS / BLADDER: There is a 9 mm nonobstructing right renal collecting system stone. There is a 2 mm nonobstructing left renal collecting system stone. There are no ureteral caliculi. There is no hydronephrosis. There are no focal renal lesions. The urinary bladder is partially distended and appears grossly unremarkable. STOMACH / BOWEL: Normal visualized stomach. There is no bowel obstruction or inflammation. The appendix is visualized and appears normal. There is a 6.7 x 6.4 x 6.3 cm fat-containing umbilical hernia. There is no bowel containing hernia. PERITONEUM/RETROPERITONEUM: There is no abdominal or pelvic free air, free fluid or fluid collection. There is no abnormal soft tissue mass identified. There is no abdominal or pelvic lymphadenopathy. VESSELS: The aorta is normal in caliber. The IVC is unremarkable. BONES: There are no destructive osseous lesions. SOFT TISSUES: The visualized soft tissues are within normal limits. CT/Abdomen/Pelvis WITH Contrast IMPRESSION: 6.7 x 6.4 x 6.3 cm fat-containing umbilical hernia. No bowel containing hernia. No bowel obstruction or inflammation. Normal appendix. Bilateral subcentimeter nonobstructing renal collecting system stones. No ureteral stones. No hydronephrosis. Hepatosplenomegaly with fatty infiltration of the liver. Electronically Signed: Ang Mckeon MD at 19:58 EDT ,
== END | disposition home or self-care (01) ==
LOC: CT 18:48
PROVIDERS: PCP Family Medicine; Referring Provider Family Medicine; Visit Provider Family Medicine
DX: K42.9 Umbilical hernia without obstruction or gangrene (principal)
CPT/HCPCS: 74177; Q9967

== ENCOUNTER 2024-01-18 10:12 | Day surgery (SDC) | payer OTHER, SELFPAY ==
[2024-01-18] VITALS (10 sets, daily range): BP systolic 107–144; BP diastolic 50–98; PULSE 76–102; RESP 16–18; TEMP 36.2–36.9; O2SAT 82–98; BMI 54.5
--- NOTE | 2024-01-18 10:16 | EKG12_ITS ---
Test Reason : PREOP Blood Pressure : / mmHG Vent. Rate : 080 BPM Atrial Rate : 080 BPM P-R Int : 192 ms QRS Dur : 084 ms QT Int : 358 ms P-R-T Axes : 025 038 028 degrees QTc Int : 412 ms Normal sinus rhythm Normal ECG When compared with ECG of 19-SEP-2019 09:33, T wave amplitude has increased in Lateral leads Confirmed by SALIMA CAMPA, KIN ([id number]), assignment desk editor JOSE MARIA NAVARRETE ([id number]) on 01/19/2024 2:34:21 PM Referred By: Maria C Tomlinson Confirmed By:KIN BORREGO MD
--- NOTE | 2024-01-18 10:33 | PRE.ANES_ITS ---
ASA Classification* ASA Classification ASA Classification: 3 Assessment & Plan Anesthesia* Anesthesia Assessment Anesthesia Assessment: Discussed sedation and/or anesthesia options, risks, benefits, and alternatives with patient/parents/legal guardian/POA. Questions invited. The patient/parents/legal guardian/POA seems to understand and agrees to proceed with anesthesia plan. Reviewed the physical assessment, medical history, allergy history and patient home medications list prior to surgery/procedure/anesthetic and documented any changes. Performed airway and anesthesia risk assessments. Anesthesia Type Anesthesia Type: General Anesthesia Focused Assessment* Airway Assessment Mouth opens: >3 cm Mallampati Score: II Focused Labs Anesthesia Preop lab: CBC WBC 15.4 K/mm3 (4.4-11.0) H 10/21/23 16:57 RBC 5.06 M/mm3 (4.2-5.4) 10/21/23 16:57 Hgb 14.1 g/dL (12.0-15.0) 10/21/23 16:57 Hct 44.8 % (37-47) 10/21/23 16:57 Plt Count 271 K/mm3 (150-450) 10/21/23 16:57 CHEMISTRY Potassium 3.9 mmol/L (3.5-5.1) 10/21/23 16:57 Sodium 137 mmol/L (136-145) 10/21/23 16:57 Magnesium 1.4 mg/dL (1.8-2.4) L 01/18/15 05:55 Phosphorus 4.6 mg/dL (2.5-4.9) 01/18/15 05:55 BUN 11 mg/dL (7-18) 10/21/23 16:57 Creatinine 0.54 mg/dL (0.55-1.02) L 10/21/23 16:57 Glucose 102 mg/dL (74-106) 10/21/23 16:57 POC Glucose 113 mg/dL (70-110) H 01/15/15 19:44 TSH 1.72 uIU/mL (0.358-3.74) 10/21/23 16:57 COAG PT 12.4 SECONDS (11.7-14.9) 01/09/15 11:51 Urine Test Negative Negative 03/25/22 10:54 Pre-Assessment Diagnosis/Proposed Procedure Planned Operative Procedure(s): OPEN UMBILICAL HERNIA WITH MESH/POSS LAP Anesthesia History Anesthesia History - inspector canvas products: Anesthesia History - inspector canvas products Hx Hospitalization No 01/16/24 12:29 Any Problems With Anesthesia No 01/16/24 12:29 Cholinesterase deficiency No 01/16/24 12:29 You/Your Family Experience No 01/16/24 12:29 fever (hyperthermia) with Relationship Recent Exposure to Contagious No 03/25/22 11:09 Disease Does patient have nerve No 01/16/24 12:29 stimulator Patient instructed to have device shut off --Does patient have Pacemaker or ICD? When Was Last Pacemaker Check QUESTION #4 FULL TEXT: You/Your Family Experience fever (hyperthermia) with Anesthesia Last Oral Intake Last Oral intake: Last Oral Intake NPO since Meds taken in AM with sips of water? Meds patient instructed to take am of surgery PONV PONV - inspector canvas products: PONV - inspector canvas products Female Yes 01/16/24 12:29 HX of Motion Sickness No 01/16/24 12:29 HX of N/V After Surgery No 01/16/24 12:29 Non-Smoker No 01/16/24 12:29 Duration of Surgery greater Yes 01/16/24 12:29 than 60 minutes Number of Risk Factors 2 01/16/24 12:29 PONV Score Moderate Risk 01/16/24 12:29 Height & Weight Height & Weight: Anesthesia: Height & Weight Height 5 ft 7 in 12/27/23 13:54 Respiratory Assessment Respiratory Assessment - inspector canvas products: Respiratory Tract Infection Hx - inspector canvas products Hx Respiratory Tract Infection No 01/16/24 12:29 STOP Sleep Apnea STOP Sleep Apnea - inspector canvas products: STOP Sleep Apnea - inspector canvas products Hx Hypertension Yes: NO MEDS FOR 9 YRS/ONLY 01/16/24 12:29 DURING Hx Sleep Apnea Yes 01/16/24 12:29 CPAP Yes 01/16/24 12:29 BIPAP No 01/16/24 12:29 Do you snore loudly (louder than talking or can be heard Do you often feel tired/ fatigued/ sleepy during daytime? Has anyone observed you stop breathing during sleep? STOP Results Positive 01/16/24 12:29 QUESTION #5 FULL TEXT : Do you snore loudly (louder than talking or can be heard through closed doors)? Tobacco Use History Tobacco Use History - inspector canvas products: Tobacco Use History - inspector canvas products Tobacco Use Smoking Status Light Smoker (<10/day) 01/16/24 12:29 Hx Tobacco Use Yes 01/16/24 12:29 Years Smoking Packs Smoked per Day Smoking Cessation Date was within the last 15 years Hx Smoking Cessation Date Hx Smoking Cessation Yes 01/16/24 12:29 Counseling Hematologic Medial History Hematologic Hx - inspector canvas products: Hematologic Medical Hx - fitness coordinator Hx of Blood Transfusion No 01/16/24 12:29 Hx of Transfusion in last 3 No 01/16/24 12:29 Months Date of Last Transfusion (if within last 3 months) Ever experience any problems No 01/16/24 12:29 with transfusion(s)? Specify any problems Hx of Preganancy in last 3 No 01/16/24 12:29 Months Nurse Filling Out Transfusion DSCHRIBER 01/16/24 12:29 & Questions: Date: 01/16/24 01/16/24 12:29 Time: 12:31 01/16/24 12:29 Patient unable to answer at this time (ie. confused, unrespo /Reproduction History /Reproductive History - inspector canvas products: /Reproductive Hx- inspector canvas products Hx Now No 01/16/24 12:29 Gestational Age (in weeks): EDC: Hx Hx Para Hx Section SAB No 01/16/24 12:29 Active Medications Active Medications: Current Medications Generic Name Dose Route Start Last Admin Trade Name Freq PRN Reason Stop Dose Admin Cefazolin Sodium 3 gm/ Sodium 115 mls @ 150 mls/hr 01/18/24 12:00 Chloride IV 01/18/24 12:45 PREOP ONE Lactated Ringer's 1,000 mls @ 15 mls/hr 01/18/24 10:30 IV .Q48H MURIEL PFSH Medical History Gastric reflux Smoker Shortness of breath on exertion Wears glasses Migraine headache CPAP (continuous positive airway pressure) dependence History of ankle fracture Right ureteral stone Anxiety and depression Paroxysmal atrial fibrillation Home Medications ?Medication ?Instructions ?Recorded ?Last Taken ?Type albuterol sulfate 90 mcg/actuation 1 - 2 puff inhalation Q4-6H PRN 12/01/23 Unknown History aerosol inhaler wheezing aripiprazole 5 mg tablet 5 mg PO QHS insomnia 12/01/23 01/17/24 History omeprazole 40 mg capsule,delayed 40 mg PO QDAY #30 caps 12/01/23 Unknown Rx release spironolactone 100 mg tablet 100 mg PO QPM 12/01/23 Unknown History trazodone 50 mg tablet 25 - 50 mg PO QHS PRN insomnia 12/01/23 Unknown History venlafaxine 150 mg 150 mg PO DAILY 12/01/23 Unknown History capsule,extended release 24 hr venlafaxine 75 mg capsule,extended 75 mg PO DAILY 12/01/23 Unknown History release 24 hr Allergy/AdvReac Type Severity Reaction Status Date / Time No Known Allergies Allergy Verified 01/18/24 10:19 Surgical History Hx of cystoscopy Hx laparoscopic cholecystectomy Previous section Social History household members: spouse and children Smoking Status: Light Smoker (<10/day) Tobacco: How many years used: 10 substance use type: does not use Review of Systems (Anesthesia) ROS Narrative System reviewed and no additional complaints, except as documented.
[2024-01-18 10:36] LABS: Internal QC Validated? YES +Cl - CLEAR BKGD; Pregnancy, Urine Negative Negative
[2024-01-18] MEDS: Lactated Ringers 1,000 ML 15 ML IV ×2 (10:41→12:39)
[2024-01-18 10:48] LABS: Hematocrit 43.6 % (37-47); Hemoglobin 13.6 g/dL (12.0-15.0); Mean Corp Hgb Conc 31.2 g/dL (32-36); Mean Corpuscular Hgb 27.2 pg (27.0-32.0); Mean Corpuscular Volume 87.2 fL (81-99); Mean Platelet Vol. 11.2 fl (6.2-12.0); Platelet Count 249 K/mm3 (150-450); RBC Distribution Width CV 14.6 % (11.6-14.6); RBC Distribution Width SD 46.8 fl (35.1-43.9); White Blood Count 14.1 K/mm3 (4.4-11.0)
--- NOTE | 2024-01-18 11:38 | PCM.HP.BLA ---
History and Physical Date of Admission: 01/18/24 Date of Service: 12/27/23 MR#: [id number] Acct: [id number] Name: CHIOMA ALFONSO Rep #: [id number] : 1985 Provider: Dr. Maria C Tomlinson MD Age/Sex: 38/F Location: [facility] Status: Signed Intake Vital Signs 11/30/2412:47 12/26/2412:54 Height 5 ft 7 in 5 ft 7 in Weight: 347 lb 347 lb BMI 54.3 54.3 BP 115/88 H 138/88 H Blood Pressure Location Rt radial Rt brachial Position Sitting Sitting Respiration 18 18 Pulse 97 72 Pulse Source Monitor Monitor Temp 97.4 F L 97.4 F L Temp Source Temporal Temporal Pulse Oximetry (%) 98 99 Oxygen Delivery Method room air room air Intake Visit Reasons: MED CHECK Chief Complaint: med check Accompanied by: Daughters Is patient in pain?: No Allergies No Known Allergies Allergy (Verified 12/01/23 13:48) Medications ?Medication ?Instructions ?Recorded ?Confirmed ?Type albuterol sulfate 90 mcg/actuation 1 - 2 puff inhalation Q4-6H PRN 12/01/23 12/27/23 History aerosol inhaler wheezing aripiprazole 5 mg tablet 5 mg PO QHS insomnia 12/01/23 12/27/23 History omeprazole 40 mg capsule,delayed 40 mg PO QDAY #30 caps 12/01/23 12/27/23 Rx release spironolactone 100 mg tablet 100 mg PO QPM 12/01/23 12/27/23 History trazodone 50 mg tablet 25 - 50 mg PO QHS PRN insomnia 12/01/23 12/27/23 History venlafaxine 150 mg 150 mg PO DAILY 12/01/23 12/27/23 History capsule,extended release 24 hr venlafaxine 75 mg capsule,extended 75 mg PO DAILY 12/01/23 12/27/23 History release 24 hr Have you fallen in the past year?: No PFSH Medical History Wears glasses Migraine headache Non-smoker CPAP (continuous positive airway pressure) dependence History of ankle fracture Right ureteral stone Anxiety and depression Paroxysmal atrial fibrillation Surgical History Hx of cystoscopy Hx laparoscopic cholecystectomy Previous section Social History household members: spouse and children Smoking Status: Light Smoker (<10/day) Tobacco: How many years used: 10 substance use type: does not use HPI HPI HPI: 38-year-old female presents for follow-up due to GERD and nausea and umbilical hernia. Patient states that on the omeprazole she is not having any reflux symptoms and has only had a couple bouts of nausea still which is improved usually gets some more in the evening time but she also states she does not really eat consistently in the summer. Patient states the umbilical hernia area is bothersome and is causing some discomfort at that area as well and she is interested in having repair. ROS General General: No weight change, appetite, fatigue, colon cancer, breast cancer or weakness HEENT HEENT: No difficulty swallowing, eye injury, eye surgery, swollen glands or hoarseness Endo Endocrine: No thyroid disease, diabetes mellitus, thyroid cancer, Hair loss, heat intolerance or cold intolerance Skin Skin: No rash or changing moles Musc Musculoskeletal: No back problems, arthritis, rheumatoid arthritis, gout or joint pain Cardio Cardiovascular: No murmur, pacemaker, heart disease, atrial fibrillation, high blood pressure, heart attack, heart stent, palpitations, shortness of breat with exertion or chest pain Psych Psychiatric: Yes depression and anxiety; No hearing voices Resp Respiratory: No shortness of breath, Yes sleep apnea, No cough, No COPD, No asthma, No emphysema and No wheezing Gastro Gastrointestinal: No abdominal pain, Yes nausea or vomiting, Yes diarrhea, Yes constipation, No blood in stool, Yes acid reflux, No hemorrhoids, No ulcers, No gallbladder problem and No black,tarry stools Shay Hematologic: No blood thinners, No blood disorders, No bleeding, No anemia and No blood clots Neuro Neurologic: No numbness, No tingling and No weakness Exam Const General: cooperative, healthy appearing, comfortable and no acute distress HENMT Head: normocephalic and atraumatic Neck Neck: supple Resp Effort & Inspection: normal respiratory effort Cardio Rate: regular rate GI Inspection: non-distended Palpation: soft, hernia (Incisional at umbilicus-incarcerated, nontender) and nontender Skin General: no rashes or lesions noted Neuro General: CN's II-XI intact bilaterally Extrem General: normal to inspection Psych Mental Status: mental status grossly normal Attitude: cooperative Assessment and Plan Assessment and Plan (1) Umbilical hernia: Status: Acute (2) GERD (gastroesophageal reflux disease): Status: Acute Plan Patient has not have improvement with her reflux on the omeprazole will have patient continue. Plan to do an umbilical hernia repair with mesh, possible laparoscopic. Reviewed the procedure with the patient including the risks, including but not limited to infection, bleeding, injury to the small bowel, and recurrence. All questions were answered and patient was agreeable with plan. Maria C Tomlinson M.D. Pager: [phone] [facility] [address] [place] [address], [address] [place] [address] Office: [phone] Coding Level of Care Code Off vis,est,level 3 Diagnoses Umbilical hernia K42.9 GERD (gastroesophageal reflux disease) K21.9 Clinical Quality Measures Falls Risk Screening/Assistive Devices Have you fallen in the past year?: No 12/29/23 0906 <Electronically signed by Maria C Tomlinson MD> Date Maria C Tomlinson MD
--- NOTE | 2024-01-18 11:45 | OM_PTH ---
PATIENT: CHIOMA ALFONSO LOC: [facility] [place] U#:[id number] AGE/SX: 38/F ROOM: RE01/18/[address]: Dr. Maria C Tomlinson MD : 1985 BED: DIS: 01/18/2024 SPEC #: [id number] RECD: 01/18/24 16:18 STATUS: DAX REJunie #: [id number] STEPHANIE: 01/18/24 11:[address]: Maria C Tomlinson DEPT: SURGICAL PATHOLOGY RECD BY: Randall Treviño ENTERED: 01/19/24 07:59 SP TYPE: OMENTUM OTHR DR: Dr. Robert Narayanan MD Tissues: A - Omentum, NOS B - HERNIA Procedures: Surgery Specimen Level II Surgery Specimen Level IV HEADER OPERATION: Umbilical hernia repair with mesh PRE-OP DIAGNOSIS: Incarcerated incisional umbilical hernia TISSUE SUBMITTED: A- Omentum, B- Hernia sac MICROSCOPIC DIAGNOSIS A. Omentum, excision: A piece of mature adipose tissue consistent with omentum with focal congestion and hemorrhage. B. Hernia sac: A piece of fibroadipose and fibroconnective tissue, consistent with hernia sac with focal congestion and hemorrhage. / 01/20/2024 MICROSCOPIC DESCRIPTION Slides are reviewed. GROSS DESCRIPTION A. Received in fixative is one container labeled with the patient's name and designated Omentum. The specimen consists of a piece of adipose tissue consistent with omentum measuring 15.0 x 12.0 x 2.0cm. Sections do not reveal any mass lesions. Fat Pressroom Worker sections are submitted in two cassettes. B. Received in fixative is one container labeled with the patient's name and designated Hernia sac. The specimen consists of a piece of pink congested soft tissue measuring 9.0 x 2.5 x 1.0cm. Sections do not reveal any mass lesions. Fat Pressroom Worker sections are submitted in one cassette. / 01/19/2024 TC:5 CPT:78621,30911
[2024-01-18] MEDS: Cefazolin 3 GM in 0.9% Normal Saline (100mL Bag) 100 ML IV (13:21)
--- NOTE | 2024-01-18 14:44 | PCM.OPRPT ---
Report of Operation Date of Procedure: 01/18/24 Pre-Operative Diagnosis: Incarcerated incisional hernia Post-Operative Diagnosis: same Surgery/Procedure Performed:: incarcerated incisional hernia repair with mesh Surgeon: Maria C Tomlinson Type of Anesthesia: General/Supplemental Anesthesiologist: Jose Jackson Special Medications: ancef 3 grams IV x 1 Specimen's removed: omentum, hernia sac Estimated Blood Loss (mL): 15 cc Description of Procedure: Patient was brought into the room placed supine on the operating table. Correct patient, procedure, site, positioning, special, was verified prior to procedure. General anesthesia was induced. The abdomen was prepped draped in usual sterile fashion. Patient's previous vertical supraumbilical midline incision was reincised with a 15 blade scalpel. This was deepened with electrocautery. Hernia sac was entered omentum was not reducible. Some of the omentum was removed using the Enseal to allow for reduction without having a increase in size of the hernia. The fascia around the hernia defect was cleared and the hernia defect measured 1.8 x 1.8 cm. A medium 6.[address] hernia patch was used and secured laterally at the tails with 1 Prolene mattress sutures. 1 Prolene suture was placed to close the fascia in two [id number] including the mesh inferiorly and superiorly. The wound was irrigated with saline. Hemostasis was assured. The skin of the umbilicus was secured to the fascia using 3-0 Vicryl suture interrupted. The incision was closed with 3-0 Vicryl subdermal interrupted sutures and the skin was closed with interrupted 4-0 Monocryl sutures. Steri-Strips and Tegaderm and OpSite were placed over the incision once sterile cotton balls were placed in the umbilicus. Patient was extubated. Patient tolerated procedure well and was taken to the postanesthesia care unit in stable condition. Grafts/Implants Used: ventralex ST 6.4 cm LOT [id number] REF [id number] Complications none
--- NOTE | 2024-01-18 14:49 | EX.PCM.DISCH ---
Discharge Instructions Diet Discharge Diet: Light diet - advance as tolerated Activity May shower in (days): 5 (Keep umbilical dressing clean dry and intact for 5 days. Okay to tape off with a Ziploc bag to shower. Or lower shower and upper sponge bath.) Lifting Restrictions: no lifting >20 lbs x 2 wks, no strenuous exercise for 4 wks Additional Activity Instructions:: - Dressing / Incision Call your doctor if your incision/area has: Continuous Slow Oozing, Sudden Increased Bleeding, Increased Pain/ Swelling, Increased Redness, Foul Smelling Discharge and Swelling at the incision site Call your doctor if you observe: Fever of 101 or Higher Remove Dressing in: 5 days (After 5 days okay to remove surgical dressing. Place cotton ball or rolled up gauze in bellybutton and retape daily for 2 more days.) Cleanse incision/area with: Do not get Incision Wet (for 5 days) Additional Dressing/Incision Instructions:: Steri-Strips will fall off in 7 to 10 days, if they do not fall off okay to remove after 10 days. Follow Up Care Please Follow Up With: Maria C Tomlinson MD When: Call the office for a follow-up appointment 2 weeks; after 5 PM and on the weekends call [phone] with any concerns. Test Results: Test results from this visit will be discussed in further detail at your follow-up appointment, if applicable. Discharge Plan Admission Attending Provider: Maria C Tomlinson Primary Care Provider: Robert Narayanan Instructions Print Language: [place] Discharge Orders/Prescriptions Prescriptions: New oxycodone-acetaminophen 5-325 mg tablet 1 - 2 tab PO Q6H PRN (Reason: pain) 3 Days Qty: 14 0RF Continued venlafaxine 75 mg capsule,extended release 24hr 75 mg PO DAILY trazodone 50 mg tablet 25 - 50 mg PO QHS PRN (Reason: insomnia) spironolactone 100 mg tablet 100 mg PO QPM venlafaxine 150 mg capsule,extended release 24hr 150 mg PO DAILY albuterol sulfate 90 mcg/actuation HFA aerosol inhaler 1 - 2 puff inhalation Q4-6H PRN (Reason: wheezing) aripiprazole 5 mg tablet 5 mg PO QHS omeprazole 40 mg capsule,delayed release(DR/EC) 40 mg PO QDAY Qty: 30 4RF Rx Instructions: swallow whole; do not crush, chew, dissolve, cut, break Referrals / Follow Up: Robert Narayanan MD [Primary Care Provider] - Disposition Disposition (needs filled in before D/C Order can be placed): Home, Self Care
[2024-01-18] MEDS: Bupiv/Epi 0.25% 30 ML Vial (15:00)
--- NOTE | 2024-01-18 15:22 | PCM.POST.ANE ---
Anesthesia: Postop Eval I Current Vital Signs Temperature: 98.2 F Pulse Rate: 92 Blood Pressure: 107/50 Respiratory Rate: 18 Pulse Ox: 93 Oxygen Delivery Method: Nasal Cannula Oxygen Flow Rate (L/min): 4 Assessment Airway patent: Yes Spontaneous unlabored respirations: Yes Mental status: Awake and Calm nausea: No Vomiting: No Anesthesia Complication: No Fluid Hydration Crystalloid volume administer (ml): 1,500 Total IV fluid infused: 1,500 Progress Note Anesthesia document: Postop Eval 1 completed: Yes
[2024-01-18] MEDS: oxyCODONE 5 MG Tablet PO (16:56)
[2024-01-18] MEDS: Acetaminophen 325 MG Tablet PO (16:56)
--- NOTE | 2024-01-18 22:28 | PCM.POSTANE2 ---
Anesthesia Postop Eval I Sum Postop Eval Completion status Anesthesia document: Postop Eval 1 completed: Yes Anesthesia Postop Eval I Summary Anesthesia Postop Eval I Summary: Anesthesia Postop Eval I: Assessment Summary Airway patent Yes 01/18/24 15:23 [email or web address] Spontaneous unlabored Yes 01/18/24 15:23 [email or web address] respirations Mental status Awake,Calm 01/18/24 15:23 [email or web address] nausea No 01/18/24 15:23 [email or web address] Vomiting No 01/18/24 15:23 [email or web address] Anesthesia Postop Eval I: Fluid Summary Crystalloid volume administer 1,500 01/18/24 15:23 [email or web address] (ml) Colloids volume administered ( ml) Blood Product volume administered (ml) Total IV fluid infused 1,500 01/18/24 15:23 [email or web address] Anesthesia Postop Eval I: Summary Notes Anesthesia Complication No 01/18/24 15:23 [email or web address] Anesthesia Complication Comment: Post-operative progress note Anesthesia: Postop Eval II Evaluation Mental status: Awake and Calm Pain Level: 0 nausea: No Vomiting: No Complications Anesthesia Complication: No
== END 2024-01-18 17:31 | disposition home or self-care (01) ==
LOC: SDC 10:14 → AC 10:14 → SDC 10:15 → AC 10:27
PROVIDERS: Anesthesiology; PCP Family Medicine; Referring Provider Surgery; Visit Provider Surgery
PROC: 0WQF4ZZ Repair Abdominal Wall, Percutaneous Endoscopic Approach (ICD-10-PCS; CPT 49594; principal; 2024-01-18 11:25)
DX: K43.0 Incisional hernia with obstruction, without gangrene (principal); K21.9 Gastro-esophageal reflux disease without esophagitis; F41.9 Anxiety disorder, unspecified; F32.A Depression, unspecified; F17.200 Nicotine dependence, unspecified, uncomplicated; G47.33 Obstructive sleep apnea (adult) (pediatric); Z79.899 Other long term (current) drug therapy; Z79.51 Long term (current) use of inhaled steroids
CPT/HCPCS: 49594; 00750; 81025; 85027; 88302; 88305; 93005; C1781; J7120; C1760; J2405

== ENCOUNTER → 2024-03-22 | Outpatient (CLI) | payer OTHER, SELFPAY ==
[2024-03-22 17:54] LABS: Cholesterol 169 mg/dL (200); High Density Lipoprotein 34 mg/dL
== END | disposition home or self-care (01) ==
PROVIDERS: PCP Family Medicine; Referring Provider Family Medicine; Visit Provider Family Medicine
DX: R16.0 Hepatomegaly, not elsewhere classified (principal)
CPT/HCPCS: 36415; 82465; 83718

== ENCOUNTER → 2024-07-30 | Outpatient (CLI) | payer OTHER, SELFPAY ==
[2024-07-30 18:00] LABS: Absolute Lymphocyte Count 4.98 X10^3/uL (0.83-4.51); Absolute Neutrophil Count 12.7 X10^3/uL (2.0-7.7); Basophil# 0.09 X10^3/uL; Basophil% 0.5 % (0-1); Eosinophils% 2.1 % (0-5); Hematocrit 41.6 % (37-47); Hemoglobin 12.5 g/dL (12.0-15.0); Lymphocyte # 4.98 X10^3/ul (0.83-4.51); Lymphocyte % 26.2 % (19-41); Mean Corpuscular Hgb 25.5 pg (27.0-32.0); Mean Corpuscular Volume 84.7 fL (81-99); Mean Platelet Vol. 11.3 fl (6.2-12.0); Monocyte# 0.75 X10^3/uL; Monocyte% 3.9 % (0-10); NRBC Flagged by Analyzer 0 % (0-5); Neutrophil # 12.68 X10^3/uL (2.7-7.7); Neutrophil % 66.7 % (47-70); Platelet Count 345 K/mm3 (150-450); RBC Distribution Width CV 14.6 % (11.6-14.6); RBC Distribution Width SD 44.9 fl (35.1-43.9); Red Blood Count 4.91 M/mm3 (4.2-5.4)
[2024-07-30 18:27] LABS: ALB/GLOB Ratio 0.7 RATIO (0.9-2.4); AST(SGOT) 12 U/L (15-37); Alanine Aminotransfer ALT/SGPT 25 U/L (13-56); Albumin, Serum 3.2 g/dL (3.2-5.0); Alkaline Phosphatase 85 U/L (45-117); Anion Gap 6 (5-15); BUN 14 mg/dL (7-18); BUN/Creat Ratio 26.1 RATIO (10-20); Calcium,Total 9.2 mg/dL (8.5-10.1); Chloride 105 mmol/L (98-107); Creatinine, Serum 0.54 mg/dL (0.55-1.02); EST Glomerular Filtration Rate 136 mL/min (>60); Est Glom Filt Rate - Afr Amer 165 mL/min (>60); Globulin 4.4 g/dL (2.2-4.2); Glucose 108 mg/dL (74-106); Potassium 3.8 mmol/L (3.5-5.1); Protein, Total 7.6 g/dL (6.4-8.2); Sodium Level 139 mmol/L (136-145)
== END | disposition home or self-care (01) ==
LOC: MFPLAB 16:59
PROVIDERS: PCP Family Medicine; Referring Provider Family Medicine; Visit Provider Family Medicine
DX: F32.4 Major depressive disorder, single episode, in partial remission (principal)
CPT/HCPCS: 36415; 80053; 84443; 85025